=== PATIENT | female | born 2000 | race Hispanic/Latino ===

== ENCOUNTER → 2023-10-13 15:14 | Outpatient (CLI) | payer OTHER, SELFPAY ==
[2023-10-13 15:26] LABS: Add Manual Diff / Slide Review NO; Basophils Absolute Auto 0 /uL (0-100); Basophils Percent Auto 0.3 % (0-2); Eosinophils Absolute Auto 100 /uL (0-450); Eosinophils Percent Auto 0.8 % (2-4); Hematocrit 29.8 % (36-46); Hemoglobin 10.2 g/dL (12.0-16.0); Lymphocytes Absolute Auto 1600 /uL (1100-4500); Mean Corpuscular HGB Conc 34.4 % (30-36); Mean Corpuscular Hemoglobin 29.1 PG (26-34); Mean Corpuscular Volume 84.7 fL (80-100); Monocytes Absolute Auto 800 /uL (0-900); Monocytes Percent Auto 8.9 % (3-14); Neutrophils Absolute Auto 6800 /uL (1500-7000); Platelet Count 231 X10^3/uL (150-400); Red Blood Cell Count 3.52 X10^6/uL (4.0-5.2); Red Cell Distribution Width 14.7 % (11.6-14.8); White Blood Cell Count 9.3 X10^3/uL (4.5-11.0)
== END ==
PROVIDERS: Referring Provider Obstetrics & Gynecology; Visit Provider Obstetrics & Gynecology
DX: O99.019 Anemia complicating pregnancy, unspecified trimester (principal)
CPT/HCPCS: 36415; 85025; 86592; 87340; 87389

== ENCOUNTER → 2023-10-20 09:43 | Outpatient (CLI) | payer OTHER, SELFPAY ==
[2023-10-21 12:12] LABS: Strep Grp B PCR NEG for Grp B Strep
== END ==
PROVIDERS: Visit Provider Obstetrics & Gynecology
DX: Z34.03 Encounter for supervision of normal first pregnancy, third trimester (principal); Z3A.36 36 weeks gestation of pregnancy
CPT/HCPCS: 87653

== ENCOUNTER 2023-10-20 10:04 | Observation (INO) | payer OTHER, SELFPAY | END 2023-10-20 10:40 | disposition home or self-care (01) | PROVIDERS: Admitting Provider Obstetrics & Gynecology; Referring Provider Obstetrics & Gynecology; Visit Provider Obstetrics & Gynecology | DX: O47.03 False labor before 37 completed weeks of gestation, third trimester (principal); O99.013 Anemia complicating pregnancy, third trimester; D64.89 Other specified anemias; Z3A.36 36 weeks gestation of pregnancy | CPT/HCPCS: 59025; 87653; G0378; G0379 ==

== ENCOUNTER → 2023-10-21 09:08 | Outpatient (CLI) | payer OTHER, SELFPAY ==
--- NOTE | 2023-10-21 09:09 | DI.US.S_ITS ---
PROCEDURE: US OB LIMITED INDICATIONS: late transfor of care, concern of IUGR OUTSIDE/PRIOR DATING DATA: Last menstrual period (LMP): 02/12/2023 LMP-based estimated date of delivery (ABELARDO): 11/19/2023 First dating scan (date and location): 05/21/2023 Estimated date of delivery (ABELARDO) from first dating scan: 11/16/2023 The calculations are made using the clinical ABELARDO of 11/19/2023. TECHNIQUE: Real-time scanning was performed of the fetus, with image documentation and biometric measurements. Endovaginal scanning: Not performed COMPARISON: [facility], , US OB < 14 WEEKS, 07/13/2023, 8:28. FINDINGS: General: A single living intrauterine gestation is present. Presentation: Vertex Placenta: Placental position is posterior, without previa. Amniotic fluid index: 15.0 cm, normal range is 5-24 cm. Single deepest vertical pocket is 5.2 cm. heart rate: 123 beats per minute. Maternal cervical canal: 3.9 cm long. Normal lower limit is 2.5 cm. biometrics: Biparietal diameter: 9.6 cm, 39 weeks 0 days Head circumference: 33.3 cm, 38 weeks 0 days Abdominal circumference: 34.8 cm, 38 weeks 5 days Femur length: 6.7 cm, 34 weeks 3 days Clinically estimated gestational age: 35 weeks 6 days Composite gestational age from present scan: 37 weeks 4 days Estimated weight and percentile: 3290 g, 92nd percentile Other: Not applicable. IMPRESSION: 1. Single live intrauterine with vertex presentation. 2. Interval growth is greater than expected with estimated weight at the 92nd percentile based on clinical gestational age. 3. And the attic fluid index is within normal limits. Approved by: Jordan Garcia M.D. on 10/26/2023 at 12:54
== END ==
LOC: US 09:08
PROVIDERS: Referring Provider Obstetrics & Gynecology; Visit Provider Obstetrics & Gynecology
DX: O99.013 Anemia complicating pregnancy, third trimester (principal); Z3A.37 37 weeks gestation of pregnancy
CPT/HCPCS: 76815

== ENCOUNTER 2023-10-27 10:31 | Observation (INO) | payer OTHER, SELFPAY | END 2023-10-27 11:05 | disposition home or self-care (01) | PROVIDERS: Admitting Provider Obstetrics & Gynecology; Referring Provider Obstetrics & Gynecology; Visit Provider Obstetrics & Gynecology | DX: O47.1 False labor at or after 37 completed weeks of gestation (principal); O99.013 Anemia complicating pregnancy, third trimester; D64.9 Anemia, unspecified; Z3A.37 37 weeks gestation of pregnancy | CPT/HCPCS: 59025; G0378; G0379 ==

== ENCOUNTER 2023-11-03 11:45 | Outpatient (CLI) | payer OTHER, SELFPAY | END 2023-11-03 12:35 | disposition home or self-care (01) | LOC: LABOR 12:06 → OB 11-08 15:03 | PROVIDERS: Referring Provider Obstetrics & Gynecology; Visit Provider Obstetrics & Gynecology | DX: O99.013 Anemia complicating pregnancy, third trimester (principal); D64.9 Anemia, unspecified; Z3A.38 38 weeks gestation of pregnancy | CPT/HCPCS: 59025; G0378; G0379 ==

== ENCOUNTER 2023-11-10 13:08 | Outpatient (CLI) | payer OTHER, SELFPAY | END 2023-11-10 13:45 | disposition home or self-care (01) | LOC: LABOR 13:16 → OB 11-15 06:16 | PROVIDERS: Referring Provider Obstetrics & Gynecology; Visit Provider Obstetrics & Gynecology | DX: O99.013 Anemia complicating pregnancy, third trimester (principal); D64.9 Anemia, unspecified; Z3A.39 39 weeks gestation of pregnancy | CPT/HCPCS: 59025; G0378; G0379 ==

== ENCOUNTER 2023-11-17 11:42 | Outpatient (CLI) | payer OTHER, SELFPAY | END 2023-11-17 12:33 | disposition home or self-care (01) | LOC: LABOR 12:00 → OB 11-18 11:57 | PROVIDERS: Referring Provider Obstetrics & Gynecology; Visit Provider Obstetrics & Gynecology | DX: O48.0 Post-term pregnancy (principal); O47.1 False labor at or after 37 completed weeks of gestation; O99.013 Anemia complicating pregnancy, third trimester; D64.9 Anemia, unspecified; Z3A.40 40 weeks gestation of pregnancy | CPT/HCPCS: 59025; G0378; G0379 ==

== ENCOUNTER 2023-11-23 11:36 | Inpatient (IN) | payer OTHER, SELFPAY ==
[2023-11-23] MEDS: LACTATED RINGERS 1,000 ML 100 ML IV (12:30)
[2023-11-23] MEDS: DINOPROSTONE VAG (CERVIDIL) 10 MG VAG (12:34)
[2023-11-23 12:41] LABS: Add Manual Diff / Slide Review NO; Basophils Absolute Auto 0 /uL (0-100); Basophils Percent Auto 0.4 % (0-2); Eosinophils Absolute Auto 100 /uL (0-450); Eosinophils Percent Auto 0.9 % (2-4); Hematocrit 31.9 % (36-46); Hemoglobin 10.9 g/dL (12.0-16.0); Lymphocytes Absolute Auto 1600 /uL (1100-4500); Lymphocytes Percent Auto 15.9 % (25-40); Mean Corpuscular Hemoglobin 28.7 PG (26-34); Mean Corpuscular Volume 84.2 fL (80-100); Monocytes Absolute Auto 900 /uL (0-900); Monocytes Percent Auto 9.3 % (3-14); Neutrophils Absolute Auto 7200 /uL (1500-7000); Neutrophils Percent Auto 73.5 % (50-75); Platelet Count 276 X10^3/uL (150-400); Red Blood Cell Count 3.79 X10^6/uL (4.0-5.2); Red Cell Distribution Width 15.5 % (11.6-14.8); White Blood Cell Count 9.8 X10^3/uL (4.5-11.0)
[2023-11-23 12:59] VITALS: BP 102/63
--- NOTE | 2023-11-23 13:23 | P.HPOB_ITS ---
OB HPI Date/Time Date of admission: 11/23/23 Date Patient Seen: 11/23/23 Time Patient Seen: 12:00 History of Present Condition Chief complaint: induction of labor : 1 Para: 0 Estimated Date of Delivery: 11/16/23 Estimated Gestational Age (weeks): 41w0d Narrative: Jessica Lake is a 23 year old female G1 at 41w0d by early dating presents for scheduled indicated IOL at late term. course notable for maternal anemia s/p iron transfusion, concern for possible LGA with noted growth in 92nd% at 36wga. Pt states she is feeling well, +FM, denies VB, LOF, dysuria. Notes persistent intermittent BH ctx but nothing consistent. Presents for admission today accompanied by her and mother. Indications Indication for induction OB: post dates History of Present care: good care Dating criteria: LMP confirmed by 1st trimester US Ultrasounds: normal mid trimester US Abnormal ultrasound findings: OSH FAS wnl, growth 39th% posterior placenta without previa Obstetrical complications: other (anemia, prior concern for IUGR however interval growth scan LGA) Medical complications: other (maternal anemia s/p iron transfusion ) Preadmission Labs Blood type: A (+) positive -: Antibody screen: negative, Cystic fibrosis screen: unknown, GBS status: negative, HBsAG: negative, HIV: negative, HSV 1: unknown, HSV 2: unknown and RPR/VDLR: negative -: Chlamydia screen: not detected and Gonorrhea screen: not detected -: Rubella: immune and Varicella: immune HCT: 31.9 PAP: Normal Quad screen: Normal (reported, unable to visualize report ) 1 hr GTT: 116 Evaluation Evaluation Baseline heart rate: 140 Variability: Moderate (11-25) monitor accelerations: Present Monitor Decelerations: Early and Episodic Uterine Contraction Intensity: Mild Category of Tracing: Reactive Status: Category l Dilation (cm): 0 Effacement (%): 50 Dilation: Closed Effacement: 40-50% station: -3 Position of cervix: mid Consistency: soft Valdez score: 4 PFSH Surgical History (Updated 10/04/23 @ 14:38 by Anni Valentino RN) [place] teeth extracted Family History (Updated 10/04/23 @ 14:39 by Anni Valentino RN) Grandmother Diabetes mellitus Hypertension Social History marital status: number of children: 0 household members: spouse lives independently: Yes caregiver/support person: No housing: apartment pets and animals: Yes (turtle) education level: college (some college) 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[employer]) current occupational exposures/hazards: No special catherine needs: No travel history: over 6 months ago seatbelt use: always water heater temp set < 120 deg: Yes working smoke detector in home: Yes fire extinguisher in home: Yes carbon monox detector in home: Yes firearms in home: No do you feel safe at home: Yes Smoking Status: Never smoker second hand exposure: No alcohol intake: never substance use type: does not use during the past year weight has: remained stable well-balanced diet: rarely or never daily servings fruits/ve-1 caffeine: Yes (minimal) Type(s) of exercise: walking Meds Home Medications and Allergies Home Medications Medication Instructions Recorded Confirmed Type breast pump #1 ea 10/13/23 11/23/23 Rx Allergies Allergy/AdvReac Type Severity Reaction Status Date / Time avocado Allergy Severe Swelling Verified 11/17/23 11:20 of Lip/Tongue/Throat shrimp Allergy Severe Swelling Verified 11/17/23 11:20 of Lip/Tongue/Throat aloe Allergy Intermediate Rash Verified 11/17/23 11:20 cantaloupe Allergy Intermediate Rash Verified 11/17/23 11:20 honeydew Allergy Intermediate Rash Verified 11/17/23 11:20 pecan nut Allergy Intermediate Rash Verified 11/17/23 11:20 Review of Systems Review of Systems ROS: Yes All systems reviewed with the patient and are negative except as otherwise documented OB Exam Vital signs Blood Pressure: 106/67 Pulse Rate: 84 Respiratory Rate: 18 Temperature: 35.8 F HENMT Head: normal to inspection Mouth: moist mucous membranes Resp Effort & Inspection: normal respiratory effort Cardio Rate: regular rate Rhythm: regular rhythm Extremities Lower extremity: Yes normal to inspection GI Inspection: normal to inspection Other: gravid, raudel cephalic 8# External Female Exam: Yes normal external appearance Speculum Exam - Vagina: Yes normal appearance of the vagina Presentation: vertex Estimated Weight (lbs): 8 Objective Labs 11/23/23 12:00 Labs: Laboratory Results - last 24 hr 11/23/23 12:00 WBC 9.8 RBC 3.79 L Hgb 10.9 L Hct 31.9 L MCV 84.2 MCH 28.7 MCHC 34.0 RDW 15.5 H Plt Count 276 Neut % (Auto) 73.5 Lymph % (Auto) 15.9 L [place] % (Auto) 9.3 Eos % (Auto) 0.9 L Baso % (Auto) 0.4 Neut # (Auto) 7200 H Lymph # (Auto) 1600 [place] # (Auto) 900 Eos # (Auto) 100 Baso # (Auto) 0 Assessment and Plan Assessment and Plan Assessment and Plan narrative: 23yo G1 at 41w0 by early dating presents for scheduled indicated IOL at late term IOL SVE cl/50/-3 however noted shift to midline with interval effacement from time of last office exam plan for cervidil for cervical ripening CEFM/toco GBS neg PNL as above maternal anemia s/p Fe transfusion at 32wga h/h on admission 10.9/31.9 plan for PPH cart/uterotonics in room at time of delivery Concern for LGA 92nd% at 36wga raudel 8# on admission low threshold to proceed to 1LTCS in absent of adequate descent with labor progression Patient is consented for vaginal, vaginal operative and delivery. She additionally consents to blood transfusion as indicated. Dispo: admit for IOL, anticipate vaginal delivery Time Spent with Patient Total time spent with greater than 50% in coordination of care (as documented) at patient's floor/unit and/or counseling patient:: 25 - 35 minutes
[2023-11-23 13:48] VITALS: BP 106/67; PULSE 84; RESP 18; TEMP 2.1; TEMP 35.8
[2023-11-24] MEDS: OXYTOCIN PREMIX 30 UNIT/500 ML PLAST..BAG IV (07:11)
[2023-11-24] MEDS: LACTATED RINGERS 1,000 ML 100 ML IV ×2 (08:15→18:16)
--- NOTE | 2023-11-24 09:38 | PM.OBPNLAB ---
Date/Time Date Patient Seen: 11/24/23 Time Patient Seen: 07:45 Pain Control Pain control: tolerating well Comments: supportive measures Pelvic Exam Dilation (cm): 3 Effacement (%): 50 station: -3 Amniotic membrane status: Intact Comments: per RN SVE Contractions Contractions on admission: regular Monitor mode: External Pitocin rate (mU/min): 1 Contraction frequency (min): 2 Contraction duration (min): 1 Contraction pattern: Regular Contraction intensity: Mild Status status: Category l Monitor Accelerations: Present Monitor Decelerations: Absent Monitor Variability: Moderate Assessment and Plan Assessment: induction ongoing Plan: continuous present management Comments: 23yo G1 at 41w1d, HD2 for IOL at late term Late term IOL appropriate response to cervical ripening --> 3cm with RN exam at 0500 start pitocin for further augmentation, titrate to pattern plan for interval SVE 4-6hr, consider AROM at that time pending descent continue CEFM, toco encourage ambulation, frequent position changes anticipate vaginal delivery
--- NOTE | 2023-11-24 20:22 | PM.OBPNLAB ---
Date/Time Date Patient Seen: 11/24/23 Time Patient Seen: 19:35 Pain Control Pain control: tolerating well Comments: Patient desires unmedicated labor; her mother Mona is concerned for her daughter in that area. Pelvic Exam Effacement (%): 50 station: -3 Amniotic membrane status: Intact Comments: Exam not repeated. See Dr. Zapata's most recent assessment. Contractions Contractions on admission: none Monitor mode: External Pitocin rate (mU/min): 12 Contraction frequency (min): 3 Contraction pattern: Regular Contraction phase: Resting Contraction intensity: Moderate Status status: Category l Heart Rate Baseline: 150 Monitor Accelerations: Present Monitor Decelerations: Absent Monitor Variability: Moderate Assessment and Plan Assessment: induction ongoing Plan: continuous present management Comments: Will patiently await entry into active phase labor and closely observe progress thereafter. Discussed the plan with both the patient and her mother who express both understanding and concurrence. I have assumed management of this patient from Dr. Zapata who requests to be called if patient requires operoative intervention
[2023-11-25] MEDS: ONDANSETRON 4 MG/2 ML INJ IV (01:29)
--- NOTE | 2023-11-25 06:15 | PM.OBPNLAB ---
Date/Time Date Patient Seen: 11/25/23 Time Patient Seen: 06:15 Pain Control Pain control: tolerating well Comments: Patient remains essentially unmedicated aside from from some use of N2O. Pelvic Exam Dilation (cm): 10 Effacement (%): 100 station: +1 Amniotic membrane status: Ruptured Comments: AROM 1700 11/24/2023, clear fluid Contractions Contractions on admission: none Monitor mode: External Pitocin rate (mU/min): 6 Contraction frequency (min): 3 Contraction pattern: Regular Contraction phase: Resting Contraction intensity: Moderate Status status: Category l Heart Rate Baseline: 150 Monitor Accelerations: Present Monitor Decelerations: Early, Episodic and Variable Monitor Variability: Moderate Assessment and Plan Assessment: induction ongoing Plan: continuous present management Comments: Anticipate
--- NOTE | 2023-11-25 07:37 | PM.OBPNLAB ---
Date/Time Date Patient Seen: 11/25/23 Time Patient Seen: 07:37 Pain Control Pain control: tolerating well Pelvic Exam Dilation (cm): 10 Effacement (%): 100 station: +1 (Vertex at +1 - +2) Amniotic membrane status: Ruptured Comments: Moderate caput, position indeterminate Contractions Contractions on admission: none Monitor mode: External Pitocin rate (mU/min): 6 Contraction frequency (min): 3 Contraction pattern: Regular Contraction phase: Resting Contraction intensity: Moderate Status status: Category l Heart Rate Baseline: 145 Monitor Accelerations: Present Monitor Decelerations: Early Monitor Variability: Moderate Assessment and Plan Assessment: induction ongoing Plan: other Comments: Will rest and use N2O x 30 minutes or so and resume pushing if sliver of cervix can be reduced. Ample room posteriorly, position indeterminate.
--- NOTE | 2023-11-25 11:41 | PM.OBPNLAB ---
Date/Time Date Patient Seen: 11/25/23 Time Patient Seen: 08:00 Pain Control Comments: Assuming care of patient from Dr. Ty. 23 year old at 41 wks gest with an uncomplicated . Received Misoprotol for cervical ripening. Had Pitocin the next morning and through the day. Pitocin was discontinued for several hours and then restarted. AROM was performed. GBS neg. Pt has progessed slowly in active labor. No epidural. Pelvic Exam Dilation (cm): 9 Effacement (%): 100 station: +1 (Vertex at +1 - +2) Amniotic membrane status: Ruptured Contractions Contractions on admission: none Monitor mode: External Pitocin rate (mU/min): 5 Contraction frequency (min): 3 Contraction duration (min): 1 Contraction pattern: Regular Contraction phase: Resting Contraction intensity: Strong/Firm Status status: Category l Heart Rate Baseline: 150 Monitor Accelerations: Present Monitor Decelerations: Variable Monitor Variability: Moderate Assessment and Plan Assessment: active labor Comments: Cervix reduced Begin pushing Expectant management to
--- NOTE | 2023-11-25 11:41 | PM.OBPRVD ---
Events: Labor Induction Labor & Delivery Delivery date: 11/25/23 Cervical ripening method: per Cervidil protocol Induction method: per pitocin protocol Delivery augmentation: rupture of membranes Delivery monitor: external FHT and external uterine Route of delivery: vacuum extraction Indication for instrumentation: maternal exhaustion Episiotomy description: None L&D Laceration Description: Perineal - 2nd Degree and Vaginal - 2nd Degree Delivery repair: vicryl and chromic Quantitative Blood Loss: 175 Anesthesia Type: Local (For repair only) Complications: None Narrative: Patient complete and pushed for roughly 3 hours. The vertex was at +2 station. She requested assistance. The vacuum was applied x1 and with 1 pull the vertex came to the perineum. The vacuum was removed. With the next push the vertex delivered over an intact perineum in the CARMEN presentation at 10:53 a.m.. A nuchal cord x1 was reduced on the perineum. The remainder of the body delivered without difficulty and was placed on mom's abdomen. The cord was double clamped and cut after it stopped pulsing. Cord bloods were obtained. Pitocin was given in the IV fluids. Placenta delivered intact with a three-vessel cord at 11:06 a.m.. The fundus was massaged to firm. A second-degree perineal/vaginal laceration was noted and repaired in the usual fashion. Hemostasis was achieved. Apgars 8 at 1 minute and 9 at 5 minutes. weight 7 lb 8 oz. Local analgesia for the repair only. . Mom and stable to recovery. [place] Baby 1: Infant gender: Male Presentation: vertex Position: Left Occiput Anterior Placenta delivery description: Spontaneous Cord Vessel Description: 3 Vessels, Nuchal Cord, Loose, Reduced and Clamped/Cut (After cord stopped pulsing) score (1 min): 8 score (5 min): 9 weight: 7 lb 8 oz Plan for aftercare: Routine care
[2023-11-25] MEDS: DERMOPLAST SPRAY 20% 60 ML 1 SPRAY TOP (16:51)
[2023-11-25] MEDS: IBUPROFEN 600 MG TABLET PO ×2 (16:56→23:31)
[2023-11-25] MEDS: ACETAMINOPHEN 325 MG TABLET 650 MG PO (20:42)
[2023-11-26] MEDS: ACETAMINOPHEN 325 MG TABLET 650 MG PO ×3 (03:10→15:51)
[2023-11-26 06:15] LABS: Hematocrit 24.7 % (36-46); Hemoglobin 8.4 g/dL (12.0-16.0)
[2023-11-26] MEDS: IBUPROFEN 600 MG TABLET PO ×3 (07:35→15:50)
[2023-11-26] MEDS: DOCUSATE 100 MG CAPSULE PO (09:32)
[2023-11-26] MEDS: PRENATAL VIT,CALC/IRON/FOLIC 1 TABLET 1 TAB PO (09:32)
--- NOTE | 2023-11-26 13:02 | P.PNOB_ITS ---
Subjective - OB Subjective Patient comments: no complaints and pain well controlled [place] baby status: doing well and nursing well feeding status: exclusively breast feeding Narrative: pt resting comfortably in bed, states she is feeling significantly better, notes only mild to moderate perineal soreness however pain well controlled with current analgesia Date Patient Seen: 11/26/23 Time Patient Seen: 12:30 Interval history: PPD1 s/p VAVD LBMI Exam Vital Signs (past 8 hours): maternal VSS reviewed per OBIX and with bedside RN, wnl for pt habitus (SBP 77- 90s) and asympatomic with ambulation afebrile Const General: cooperative, healthy appearing and comfortable Nutritional Appearance: average body habitus Orientation: alert, awake and oriented x3 Limitations: mental status not altered HENMT Head: normal to inspection Mouth: moist mucous membranes Chest Chest: normal inspection of the chest Breast inspection: normal inspection of the breasts Resp Effort & Inspection: normal respiratory effort Cardio Pulses: normal peripheral pulses GI Inspection: normal to inspection Other: fundus firm << umb, non-tender Other: deferred per shared decision making with patient Skin General: no rashes or lesions noted Neuro General: patient alert, patient awake and patient oriented x3 Extrem General: normal to inspection Psych Appearance: grossly normal Mental Status: mental status grossly normal Speech and Movement: speech and movement normal Attitude: cooperative Thought Content: normal Judgment: judgment good Objective Labs 11/26/23 06:05 Labs: Laboratory Results - last 24 hr 11/26/23 06:05 Hgb 8.4 L Hct 24.7 L Assessment & Plan Plan day: 1 plan OB: routine care Comments: 23yo PPD1 s/p VAVD of LBMI routine care fully advanced exclusively, support PRN PNL as per admission documentation pt declines immediately contraception, readdress/confirm prior to discharge Asymptomatic chronic maternal anemia continue oral iron supplementation on discharge anticipate dc to home PPD2 pending clinical course, clearance per peds. Routine 4-6wk f/u in office Time Spent With Patient Time: Total time spent is greater than 50% in coordination of care (as documented) at patient's floor/unit and/or counseling patient: Time with patient: 15-24 minutes
--- NOTE | 2023-11-27 21:03 | P.DS_ITS ---
Discharge Providers Provider Date of admission: 11/23/23 11:36 Discharge Date: 11/26/23 Primary care physician: Darwin HAYS Provider Consults: 11/23/23 11:51 Consult to Anesthesiology Urgent Comment: Consulting Provider: Anesthesiologist Reason for consultation: Epidural 11/26/23 11:41 Consult to Equipment Services Associate Routine Comment: Discharge provider: Kathy Rodriguez MD Summary Hospital Course Date Patient Seen: 11/26/23 Time Patient Seen: 17:15 Diagnoses: 41 wks gestation Vacuum assisted vaginal delivery Second degree perineal/vaginal laceration Artificial rupture of membranes Cervidil cervical ripening Pitocin induction of labor Hospital Course: Patient is a 23 year old Peripartum Data Infant Delivery Method: Assisted Delivery (vacuum) Laceration Description: Perineal - 2nd Degree and Vaginal - 2nd Degree Episiotomy description: None Procedures: Cervidil cervical ripening Pitocin induction of labor Spontaneous rupture of membranes Vacuum assisted vaginal delivery Second degree vaginal/perineal laceration repair complications: none [place] 1: Gender: Male Disposition of : home Status at Discharge Cognitive/behavioral status at discharge: oriented Functional status at discharge: independent ambulation Overall status at discharge: patient is progressing back to baseline Time Spent with Patient Time attestation: Total time spent providing and/or coordinating discharge services: Time spent: Less than 30 minutes Objective Labs 11/26/23 06:05 Exam Narrative Exam Narrative: Gen: Sitting on edge of bed, NAD Fundus: Firm U/U Ext: Trace edema, neg Rick's Discharge Plan Discharge Plan Patient Disposition: Home Provider Discharge Comment: Call with fever, chills, or bleeding vaginally more than a pad in an hour Ibuprofen 600 mg every 6 hours as needed for cramping Tylenol 650 mg every 6 hours as needed Discharge orders & Medications Prescriptions: No Action (DME) breast pump Device See Rx Instructions .Route Qty: 1 0RF Rx Instructions: As directed double electric Follow up/Referrals: Maria C Zapata MD [Physician] - (6 week Appt w/ Dr. Zapata: Jan.06 @ 11am) Diet/Activity/Treatments Diet: Regular Activity: Nothing in the vagina for 6 weeks Skin/Wound/Dressing Care Report to your healthcare provider any signs of infection, such as:: chills, fever, increased pain and unusual drainage Visit Report/Discharge Packet Instructions: DI for Labor and Delivery, Vaginal Stand Alone Forms: Discharge: Care, Patient Portal/API, Stroke Signs & Symptoms Discharge Data Primary Care Provider: Darwin Scales
== END 2023-11-26 19:07 | disposition home or self-care (01) | DRG 807 ==
PROVIDERS: Obstetrics & Gynecology; Admitting Provider Obstetrics & Gynecology; Referring Provider Obstetrics & Gynecology; Visit Provider Obstetrics & Gynecology
DX: O48.0 Post-term pregnancy (principal); Z37.0 Single live birth; Z3A.41 41 weeks gestation of pregnancy; O70.1 Second degree perineal laceration during delivery; O76 Abnormality in fetal heart rate and rhythm complicating labor and delivery; O75.81 Maternal exhaustion complicating labor and delivery
CPT/HCPCS: 36415; 59050; 59200; 59410; 85014; 85018; 85025; 86850; 86900; 86901; G0379; J2405; J2590

== ENCOUNTER 2024-01-28 16:58 | Emergency (ER) | payer OTHER, SELFPAY ==
[2024-01-28 17:04] VITALS: BP 118/80; PULSE 71; RESP 16; TEMP 37.1; O2SAT 97
[2024-01-28 17:39] LABS: Add Manual Diff / Slide Review NO; Basophils Absolute Auto 0 /uL (0-100); Basophils Percent Auto 0.6 % (0-2); Eosinophils Absolute Auto 100 /uL (0-450); Hematocrit 37.3 % (36-46); Hemoglobin 12.4 g/dL (12.0-16.0); Lymphocytes Absolute Auto 2000 /uL (1100-4500); Lymphocytes Percent Auto 34.2 % (25-40); Mean Corpuscular HGB Conc 33.3 % (30-36); Mean Corpuscular Hemoglobin 27.2 PG (26-34); Mean Corpuscular Volume 81.7 fL (80-100); Monocytes Absolute Auto 600 /uL (0-900); Monocytes Percent Auto 10.1 % (3-14); Neutrophils Absolute Auto 3200 /uL (1500-7000); Neutrophils Percent Auto 54.1 % (50-75); Platelet Count 292 X10^3/uL (150-400); Red Blood Cell Count 4.56 X10^6/uL (4.0-5.2); Red Cell Distribution Width 13.2 % (11.6-14.8)
[2024-01-28 17:50] LABS: Acetaminophen < 10 ug/mL (10-30); Alanine Aminotransferase 28 IU/L (<35); Albumin 4.4 g/dL (3.5-5.0); Albumin Globulin Ratio 1.5 (1.0-2.8); Alkaline Phosphatase 85 U/L (38-126); Aspartate Aminotransferase 27 IU/L (14-36); BUN Creatinine Ratio 16.4 (6-22); Bilirubin Total 0.4 mg/dL (0.2-1.3); Blood Urea Nitrogen 12 mg/dL (7-17); Calcium 9.6 mg/dL (8.4-10.2); Carbon Dioxide 22 mmol/L (22-32); Chloride 105 mmol/L (98-107); Estimated Glomerular Filt Rate > 60 mL/min (>60); Glucose 81 mg/dL (70-100); HEMOLYSIS < 15 (0-50); Potassium 3.1 mmol/L (3.4-5.1); Salicylate < 1.0 mg/dL (<20); Sodium 140 mmol/L (137-145); Total Protein 7.4 g/dL (6.3-8.2)
[2024-01-28 17:58] LABS: Ethanol (ETOH) < 10 mg/dL
--- NOTE | 2024-01-28 18:18 | ED.PSYCH ---
HPI - Psych General Chief Complaint: Psychiatric Symptoms Stated Complaint: post examination, sent by OB Time Seen by Provider: 01/28/24 17:47 Source: patient Mode of arrival: Ambulatory History of Present Illness HPI Narrative: Patient is a 24-year-old female who is 2 months . 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 She was brought over by the OB department for concerns of depression. Patient reports that she has had increased irritability over the past several weeks. She was currently on Zoloft and has been on this medicine for just a couple weeks as well. Occasionally has fleeting thoughts of hurting herself but nothing currently. No specific plan. No prior history of depression. She was currently face with having to return to work which somewhat distressing for. Patient has been seen by social work prior to my evaluation. Related Data Previous Rx's Medication Instructions Recorded breast pump #1 ea 10/13/23 ibuprofen 600 mg tablet 600 mg PO Q6H PRN fever or pain 11/30/23 #30 tabs oxycodone 5 mg tablet 5 mg PO Q6H PRN pain #12 tabs 11/30/23 sertraline 50 mg tablet 50 mg PO DAILY #30 tabs 01/19/24 Allergies Allergy/AdvReac Type Severity Reaction Status Date / Time avocado Allergy Severe Swelling Verified 11/30/23 11:53 of Lip/Tongue/Throat shrimp Allergy Severe Swelling Verified 11/30/23 11:53 of Lip/Tongue/Throat aloe Allergy Intermediate Rash Verified 11/30/23 11:53 cantaloupe Allergy Intermediate Rash Verified 11/30/23 11:53 honeydew Allergy Intermediate Rash Verified 11/30/23 11:53 pecan nut Allergy Intermediate Rash Verified 11/30/23 11:53 Review of Systems Review of Systems Narrative: See HPI Patient History Medical History depression Allergies Surgical History (Updated 11/25/23 @ 17:10 by Reina Viera) Hessel teeth extracted (~08/19/20) Family History (Updated 11/25/23 @ 17:12 by Reina Viera) Grandmother Diabetes mellitus Hypertension Grandfather History of heart disease Grandfather Diabetes mellitus Grandmother Cancer Diabetes mellitus Glaucoma Social History marital status: number of children: 0 household members: spouse lives independently: Yes caregiver/support person: No housing: apartment pets and animals: Yes (turtle) education level: college (some college) 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[employer])) current occupational exposures/hazards: No special catherine needs: No travel history: over 6 months ago seatbelt use: always water heater temp set < 120 deg: Yes working smoke detector in home: Yes fire extinguisher in home: Yes carbon monox detector in home: Yes firearms in home: No do you feel safe at home: Yes Smoking Status: Never smoker second hand exposure: No alcohol intake: never substance use type: does not use during the past year weight has: remained stable well-balanced diet: rarely or never daily servings fruits/ve-1 caffeine: Yes (minimal) Type(s) of exercise: walking Smoking Status: Never smoker Substance Use Type: does not use Exam Initial Vital Signs Initial Vital Signs: Vital Signs Temperature 98.8 F 01/28/24 17:04 Pulse Rate 71 01/28/24 17:04 Respiratory Rate 16 01/28/24 17:04 Blood Pressure 118/80 01/28/24 17:04 Pulse Oximetry 97 01/28/24 17:04 Oxygen Delivery Method Room Air 01/28/24 17:04 HENMT Head: normal to inspection and normocephalic Resp Effort & Inspection: normal respiratory effort Cardio Rate: regular rate Skin General: no rashes or lesions noted Neuro General: patient alert, patient awake and moves all extremities Extrem General: normal to inspection Psych Other: Patient was calm, cooperative, not anxious, no suicidal ideation. Course Orders Ordered: ED Orders 01/28/24 17:15 COVID19 -Nasal RAPID Stat Urine Drug Screen, Rapid Stat 01/28/24 17:20 Consult to DIRECTOR OPERATIONS - Health Manager Stat Acetaminophen Stat Complete Blood Count AUTO DIFF Stat Comprehensive Metabolic Panel Stat Ethanol (ETOH) Stat Free T4, Direct Thyroxine Stat Salicylate Stat Thyroid Stimulating Hormone Stat Vital Signs Vital signs: Vital Signs - 8 hr 01/28/24 17:04 Temperature 98.8 F Pulse Rate 71 Respiratory Rate 16 Blood Pressure 118/80 Pulse Oximetry 97 Oxygen Delivery Method Room Air MDM - Psych Lab Data 01/28/24 17:20 01/28/24 17:20 Labs: Lab Results 01/28/24 Range/Units 17:20 WBC 6.0 (4.5-11.0) X10^3/uL RBC 4.56 (4.0-5.2) X10^6/uL Hgb 12.4 (12.0-16.0) g/dL Hct 37.3 (36-46) % MCV 81.7 (80-100) fL MCH 27.2 (26-34) PG MCHC 33.3 (30-36) % RDW 13.2 (11.6-14.8) % Plt Count 292 (150-400) X10^3/uL Neut % (Auto) 54.1 (50-75) % Lymph % (Auto) 34.2 (25-40) % Cottle % (Auto) 10.1 (3-14) % Eos % (Auto) 1.0 L (2-4) % Baso % (Auto) 0.6 (0-2) % Neut # (Auto) 3200 (2293-7271) /uL Lymph # (Auto) 2000 (4051-9720) /uL Cottle # (Auto) 600 (0-900) /uL Eos # (Auto) 100 (0-450) /uL Baso # (Auto) 0 (0-100) /uL Sodium 140 (137-145) mmol/L Potassium 3.1 L (3.4-5.1) mmol/L Chloride 105 (98-107) mmol/L Carbon Dioxide 22 (22-32) mmol/L BUN 12 (7-17) mg/dL Creatinine 0.73 (0.52-1.04) mg/dL Estimated GFR > 60 (>60) mL/min BUN/Creatinine Ratio 16.4 (6-22) Glucose 81 (70-100) mg/dL Calcium 9.6 (8.4-10.2) mg/dL Total Bilirubin 0.4 (0.2-1.3) mg/dL AST 27 (14-36) IU/L ALT 28 (<35) IU/L Alkaline Phosphatase 85 (38-126) U/L Total Protein 7.4 (6.3-8.2) g/dL Albumin 4.4 (3.5-5.0) g/dL Globulin 3.0 (1.7-4.1) g/dL Albumin/Globulin Ratio 1.5 (1.0-2.8) TSH 0.786 (0.47-4.68) uIU/mL Free T4 1.45 (0.78-2.19) ng/dL Salicylates < 1.0 (<20) mg/dL Acetaminophen < 10 (10-30) ug/mL Ethyl Alcohol < 10 ( - 10) mg/dL MDM Narrative Medical decision making narrative: Patient has been seen by social work prior to my evaluation. There was no indication for admission to the hospital given her presentation today. She was not suicidal. She was given resources for help. She was eligible for [facility] and family services through the [facility] was can be very helpful as well. Patient does have support at home. Will discharge patient home with return precautions. She expressed understanding and agreement with plan. Discharge Plan Departure Patient Disposition: Home Clinical Impression: Adjustment disorder Activity Restrictions/Additional Instructions: Recommend that you continue to take all of your medications as directed. I also recommend that [place] and also use the resources provided to you today by social media senior associate specifically [employer] family services. Return to the emergency department for new or worsening symptoms. Prescriptions: No Action (DME) breast pump Device See Rx Instructions .Route Qty: 1 0RF Rx Instructions: As directed double electric sertraline 50 mg tablet 50 mg PO DAILY Qty: 30 3RF ibuprofen 600 mg tablet 600 mg PO Q6H PRN (Reason: fever or pain) Qty: 30 2RF oxycodone 5 mg tablet 5 mg PO Q6H PRN (Reason: pain) Qty: 12 0RF Referrals: [facility] [Primary Care Provider] - Stand Alone Forms: Patient Portal/API
[2024-01-28 18:22] LABS: Free T4, Direct Thyroxine 1.45 ng/dL (0.78-2.19)
--- NOTE | 2024-01-28 18:22 | CM.SWNOTE ---
ED DOMESTIC TRAVEL CONSULTANT Assessment Patient is 24 y/o female who presents to ED due to concern for depression and Anxiety. Patient endorses passive SI but no intent or plans. DOMESTIC TRAVEL CONSULTANT enters room to meet with patient, patient presents as A/Ox4, calm, coherent and communicative. Patient presents with some flat affect, tearful at times, euthymic. Patient has close follow up with OB Dr. Maria C Zapata who recently prescribed 50 mg of Sertraline for patient. Patient has upcoming appt scheduled for 02/01/24. Patient had her baby boy 2 months ago and has been feeling overwhelmed and triggered about going back to work in a few weeks. Patient endorses she has lost several family members recently as well. 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 Patient endorses SI comes and goes, here and there. Patient endorses passive thoughts of jumping out a window, patient denies current thoughts and denies intent to kill self. Patient states she would reach out to her or mother if thoughts worsened and if she was worried she would act on SI. Patient states sometimes she thinks about how she wants to be with grandma. Patient denies HI. Patient denies auditory and visual hallucinations. Patient endorses concerns for paranoia. Patient endorses she feels safe at home and feels safe to d/c to home. Patient endorses that she knows taking things one step at a time will help her move forward. Patient states she has a friend who is a new mother and she knows she can talk with her on the phone as well. DOMESTIC TRAVEL CONSULTANT provides patient with resources, maternity crisis line and information on [facility] [place] Mother's group. DOMESTIC TRAVEL CONSULTANT provides patient with list of MH providers that accept her insurance and encourages patient to reach out to [facility] and family with provided contact information. DOMESTIC TRAVEL CONSULTANT encourages patient to continue to f/u with OB and PCP. DOMESTIC TRAVEL CONSULTANT reviews patient with ED provider Dr. Herman, it is the opinion of this DOMESTIC TRAVEL CONSULTANT that patient is safe to d/c to home upon medical clearance. Plan: patient to d/c to home upon medical clearance, patient to f/u with OB next week and f/u with resources provided. JAMES Beltre
[2024-01-28 18:36] LABS: Thyroid Stimulating Hormone 0.786 uIU/mL (0.47-4.68)
[2024-01-28 18:37] VITALS: BP 120/78; PULSE 72; RESP 16; O2SAT 97
== END 2024-01-28 18:40 | disposition home or self-care (01) ==
PROVIDERS: Emergency Medicine; Emergency Provider Emergency Medicine
DX: F53.0 Postpartum depression (principal); F43.20 Adjustment disorder, unspecified
CPT/HCPCS: 36415; 80053; 80320; 80329; 84439; 84443; 85025; 99283; G0480

== ENCOUNTER 2024-02-09 15:09 | Emergency (ER) | payer OTHER, SELFPAY ==
[2024-02-09 15:39] VITALS: BP 134/77; PULSE 91; RESP 12; TEMP 36.7; O2SAT 95; BMI 21.2
[2024-02-09 15:51] LABS: Appearance Urine UA SL CLOUDY; Bilirubin Urine UA 2+ (NEGATIVE); Color Urine UA YELLOW; Glucose Urine UA NEGATIVE (Negative); Ketones Urine UA 1+ (NEGATIVE); Leukocyte Esterase Urine UA TRACE (NEGATIVE); Nitrite Urine UA NEGATIVE (Negative); Occult Blood Urine UA TRACE-INTACT (Negative); Protein Urine UA 1+ (Negative); Specific Gravity Urine UA >=1.030 (1.000-1.035)
[2024-02-09 15:56] LABS: pH Urine UA 5.5 (4.5-8.0)
[2024-02-09 16:01] LABS: Ictotest Urine Negative (Negative); Urine Volume 10mL (spun)
--- NOTE | 2024-02-09 16:02 | PC.NURSE ---
ORE FEEDER NOTE: Pt at bedside. Patient is sitting in bed quietly
[2024-02-09 16:03] LABS: Bacteria Urine Few (2-10); RBC Urine None Seen (0-5/HPF); Squamous Epithelial Cell Urine 10-30 /HPF (0-5/HPF); WBC Urine 30-100/HPF (0-5/HPF)
[2024-02-09 16:04] LABS: Culture Indicated Urine Specimen Cultured
[2024-02-09 16:05] LABS: UR Morphine/Opiate cutoff 300 Negative (Negative); Ur Creatinine Normal (Normal); Ur Specific Gravity Normal (Normal); Urine Amphetamines Negative (Negative); Urine Barbiturates Negative (Negative); Urine Benzodiazepines Negative (Negative); Urine Cocaine Negative (Negative); Urine MDMA Negative (Negative); Urine Methadone Negative (Negative); Urine Methamphetamines Negative (Negative); Urine Oxycodone Negative (Negative); Urine Phencyclidine Negative (Negative); Urine Tetrahydrocannabinol Negative (Negative); Urine Tricyclic Antidepressant Negative (Negative); Urine pH Normal (Normal)
[2024-02-09 16:06] LABS: Add Manual Diff / Slide Review NO; Basophils Absolute Auto 100 /uL (0-100); Basophils Percent Auto 0.9 % (0-2); Eosinophils Absolute Auto 100 /uL (0-450); Eosinophils Percent Auto 1.6 % (2-4); Hematocrit 41.3 % (36-46); Hemoglobin 13.9 g/dL (12.0-16.0); Lymphocytes Absolute Auto 1300 /uL (1100-4500); Lymphocytes Percent Auto 22.6 % (25-40); Mean Corpuscular HGB Conc 33.6 % (30-36); Mean Corpuscular Hemoglobin 27.3 PG (26-34); Mean Corpuscular Volume 81.4 fL (80-100); Monocytes Absolute Auto 600 /uL (0-900); Monocytes Percent Auto 10.3 % (3-14); Neutrophils Absolute Auto 3700 /uL (1500-7000); Neutrophils Percent Auto 64.6 % (50-75); Platelet Count 323 X10^3/uL (150-400); Red Blood Cell Count 5.08 X10^6/uL (4.0-5.2); White Blood Cell Count 5.7 X10^3/uL (4.5-11.0)
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
[2024-02-09 16:22] LABS: Acetaminophen < 10 ug/mL (10-30); Alanine Aminotransferase 25 IU/L (<35); Albumin 4.6 g/dL (3.5-5.0); Albumin Globulin Ratio 1.4 (1.0-2.8); Alkaline Phosphatase 78 U/L (38-126); Aspartate Aminotransferase 28 IU/L (14-36); Bilirubin Total 0.6 mg/dL (0.2-1.3); Blood Urea Nitrogen 10 mg/dL (7-17); Calcium 9.6 mg/dL (8.4-10.2); Carbon Dioxide 19 mmol/L (22-32); Chloride 107 mmol/L (98-107); Estimated Glomerular Filt Rate > 60 mL/min (>60); Ethanol (ETOH) < 10 mg/dL; Globulin 3.3 g/dL (1.7-4.1); Glucose 100 mg/dL (70-100); HEMOLYSIS < 15 (0-50); Salicylate < 1.0 mg/dL (<20); Sodium 141 mmol/L (137-145); Total Protein 7.9 g/dL (6.3-8.2)
--- NOTE | 2024-02-09 16:27 | PC.NURSE ---
Pt came to door and asked Is a doctor going to come see me? I reassured to the patient that the ED doc is going to come in assess her its just unknown exactly what time he will be in. Patient was understanding and calm, I offered water and snacks to the patient and her spouse at the bedside.
[2024-02-09 16:51] LABS: COVID19 -Nasal RAPID Negative (Negative)
[2024-02-09 16:52] LABS: Thyroid Stimulating Hormone 0.568 uIU/mL (0.47-4.68)
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
--- NOTE | 2024-02-09 18:02 | ED_ITS ---
HPI - Psych General Chief Complaint: Psychiatric Symptoms Stated Complaint: post assessment Time Seen by Provider: 02/09/24 18:01 Source: patient and family Mode of arrival: Ambulatory History of Present Illness HPI Narrative: 24-year-old walked over from the OBGYN office for evaluation for severe depression with concern for active psychosis. Patient herself states that she is depressed but has difficulty give me any additional history she was quite tearful and has difficulty getting through questions. Reports from as well as the OBGYN are patient has had increasing depression with suicidal ideation, paranoia and possibly hallucinations. Patient states she is very depressed denies any homicidal ideation, does describe suicidal ideation. Related Data Previous Rx's Medication Instructions Recorded breast pump #1 ea 10/13/23 ibuprofen 600 mg tablet 600 mg PO Q6H PRN fever or pain 11/30/23 #30 tabs oxycodone 5 mg tablet 5 mg PO Q6H PRN pain #12 tabs 11/30/23 sertraline 50 mg tablet 50 mg PO DAILY #30 tabs 01/19/24 quetiapine 25 mg tablet (Seroquel) 25 mg PO BEDTIME #20 tabs 02/01/24 Allergies Allergy/AdvReac Type Severity Reaction Status Date / Time avocado Allergy Severe Swelling Verified 11/30/23 11:53 of Lip/Tongue/Throat shrimp Allergy Severe Swelling Verified 11/30/23 11:53 of Lip/Tongue/Throat aloe Allergy Intermediate Rash Verified 11/30/23 11:53 cantaloupe Allergy Intermediate Rash Verified 11/30/23 11:53 honeydew Allergy Intermediate Rash Verified 11/30/23 11:53 pecan nut Allergy Intermediate Rash Verified 11/30/23 11:53 Review of Systems Review of Systems ROS Unobtainable: All systems reviewed & are unremarkable except as noted in HPI and below Patient History Medical History depression Allergies Surgical History [place] teeth extracted (~08/19/20) Family History Grandmother Diabetes mellitus Hypertension Grandfather History of heart disease Grandfather Diabetes mellitus Grandmother Cancer Diabetes mellitus Glaucoma Social History marital status: number of children: 0 household members: spouse lives independently: Yes caregiver/support person: No housing: apartment pets and animals: Yes (turtle) education level: college (some college) 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[place] current occupational exposures/hazards: No special catherine needs: No travel history: over 6 months ago seatbelt use: always water heater temp set < 120 deg: Yes working smoke detector in home: Yes fire extinguisher in home: Yes carbon monox detector in home: Yes firearms in home: No do you feel safe at home: Yes Smoking Status: Never smoker second hand exposure: No alcohol intake: never substance use type: does not use during the past year weight has: remained stable well-balanced diet: rarely or never daily servings fruits/ve-1 caffeine: Yes (minimal) Type(s) of exercise: walking Smoking Status: Never smoker Substance Use Type: does not use Exam Narrative Exam Narrative: GENERAL: Alert and oriented x three, thin female in moderate distress. Patient is tearful throughout our evaluation. HEENT: Head normocephalic, atraumatic, EOMI, pupils reactive, face symmetric, moist mucous membranes NECK: Supple, full range of motion CARDIOVASCULAR: Regular rate and rhythm without murmurs, rubs or gallops. RESPIRATORY: Breath sounds equal bilaterally, no wheezes rales or rhonchi. ABDOMEN: Soft, nontender. Normoactive bowel sounds all 4 quadrants. No guarding or rebound, rigidity, no mass : No CVA tenderness EXTREMITIES: Normal range of motion, no clubbing or edema. Neurovascularly intact NEUROLOGICAL: Cranial nerves II through XII grossly intact. Moving all extremities SKIN: Warm, dry, no petechiae, no rashes or lesions. PSYCH: Denies homicidal ideation, does have some suicidal ideation. Patient had difficulty getting through the rest of the exam. Clear speech. Initial Vital Signs Initial Vital Signs: Vital Signs Temperature 98.1 F 02/09/24 15:39 Pulse Rate 91 H 02/09/24 15:39 Respiratory Rate 12 02/09/24 15:39 Blood Pressure 134/77 02/09/24 15:39 Pulse Oximetry 95 02/09/24 15:39 Oxygen Delivery Method Room Air 02/09/24 15:39 Course Orders Ordered: Discontinued Medications Olanzapine (Olanzapine 2.5 Mg Tablet) 2.5 mg PO NOW ONE Stop: 02/09/24 18:06 Last Admin: 02/09/24 18:11 Dose: 2.5 mg Documented By: LINCOLN Potassium Chloride (Potassium Chloride 20 Meq Tab) 40 meq PO NOW ONE Stop: 02/09/24 18:06 Last Admin: 02/09/24 18:11 Dose: 40 meq Documented By: LINCOLN Vital Signs Vital signs: Vital Signs - 8 hr 02/09/24 15:39 02/09/24 18:03 Temperature 98.1 F Pulse Rate 91 H 85 Respiratory Rate 12 12 Blood Pressure 134/77 127/81 Pulse Oximetry 95 99 Oxygen Delivery Method Room Air Room Air MDM - Psych Lab Data 02/09/24 15:52 02/09/24 15:52 Labs: Lab Results 02/09/24 02/09/24 02/09/24 Range/Units 15:44 15:45 15:45 WBC (4.5-11.0) X10^3/uL RBC (4.0-5.2) X10^6/uL Hgb (12.0-16.0) g/dL Hct (36-46) % MCV (80-100) fL MCH (26-34) PG MCHC (30-36) % RDW (11.6-14.8) % Plt Count (150-400) X10^3/uL Neut % (Auto) (50-75) % Lymph % (Auto) (25-40) % [place] % (Auto) (3-14) % Eos % (Auto) (2-4) % Baso % (Auto) (0-2) % Neut # (Auto) (4724-4372) /uL Lymph # (Auto) (1028-4847) /uL [place] # (Auto) (0-900) /uL Eos # (Auto) (0-450) /uL Baso # (Auto) (0-100) /uL Sodium (137-145) mmol/L Potassium (3.4-5.1) mmol/L Chloride (98-107) mmol/L Carbon Dioxide (22-32) mmol/L BUN (7-17) mg/dL Creatinine (0.52-1.04) mg/dL Estimated GFR (>60) mL/min BUN/Creatinine Ratio (6-22) Glucose (70-100) mg/dL Calcium (8.4-10.2) mg/dL Total Bilirubin (0.2-1.3) mg/dL AST (14-36) IU/L ALT (<35) IU/L Alkaline Phosphatase (38-126) U/L Total Protein (6.3-8.2) g/dL Albumin (3.5-5.0) g/dL Globulin (1.7-4.1) g/dL Albumin/Globulin Ratio (1.0-2.8) TSH (0.47-4.68) uIU/mL Free T4 (0.78-2.19) ng/dL Urine Color Yellow Urine Appearance Sl cloudy Urine pH 5.5 Normal (4.5-8.0) Ur Specific [place] >=1.030 H (1.000-1.035) Urine Protein 1+ H (Negative) Urine Glucose (UA) Negative (Negative) g/dL Urine Ketones 1+ H (NEGATIVE) Urine Occult Blood Trace-intact (Negative) Urine Nitrate Negative (Negative) Urine Bilirubin 2+ H (NEGATIVE) Ur Bilirubin Confirm Negative (Negative) Urine Urobilinogen 1.0 (0.2) E.U./dL Ur Leukocyte Esterase Trace H (NEGATIVE) Urine RBC None seen (0-5/HPF) Urine WBC 30-100/hpf H (0-5/HPF) Ur Squamous Epith Cells 10-30 /hpf H (0-5/HPF) Urine Bacteria Few (2-10) H (None) Ur Culture Indicated? Specimen cultured Vol Urine Centrifuged 10ml (spun) Salicylates (<20) mg/dL U Opiates 300ng/mL cut Negative (Negative) Ur Oxycodone Screen Negative (Negative) Urine Methadone Screen Negative (Negative) Acetaminophen (10-30) ug/mL Ur Barbiturates Screen Negative (Negative) U Tricyclic Antidepress Negative (Negative) Ur Phencyclidine Scrn Negative (Negative) Ur Amphetamines Screen Negative (Negative) U Methamphetamines Scrn Negative (Negative) Ur MDMA Scrn (Ecstasy) Negative (Negative) U Benzodiazepines Scrn Negative (Negative) Urine Cocaine Screen Negative (Negative) U Marijuana (THC) Screen Negative (Negative) Urine Specific [place] Normal (Normal) Ethyl Alcohol ( - 10) mg/dL Ur Creatinine Normal (Normal) SARS-CoV-2 (PCR) Negative (Negative) 02/09/24 Range/Units 15:52 WBC 5.7 (4.5-11.0) X10^3/uL RBC 5.08 (4.0-5.2) X10^6/uL Hgb 13.9 (12.0-16.0) g/dL Hct 41.3 (36-46) % MCV 81.4 (80-100) fL MCH 27.3 (26-34) PG MCHC 33.6 (30-36) % RDW 14.0 (11.6-14.8) % Plt Count 323 (150-400) X10^3/uL Neut % (Auto) 64.6 (50-75) % Lymph % (Auto) 22.6 L (25-40) % [place] % (Auto) 10.3 (3-14) % Eos % (Auto) 1.6 L (2-4) % Baso % (Auto) 0.9 (0-2) % Neut # (Auto) 3700 (0548-7810) /uL Lymph # (Auto) 1300 (4243-8294) /uL [place] # (Auto) 600 (0-900) /uL Eos # (Auto) 100 (0-450) /uL Baso # (Auto) 100 (0-100) /uL Sodium 141 (137-145) mmol/L Potassium 3.0 L (3.4-5.1) mmol/L Chloride 107 (98-107) mmol/L Carbon Dioxide 19 L (22-32) mmol/L BUN 10 (7-17) mg/dL Creatinine 0.91 (0.52-1.04) mg/dL Estimated GFR > 60 (>60) mL/min BUN/Creatinine Ratio 11.0 (6-22) Glucose 100 (70-100) mg/dL Calcium 9.6 (8.4-10.2) mg/dL Total Bilirubin 0.6 (0.2-1.3) mg/dL AST 28 (14-36) IU/L ALT 25 (<35) IU/L Alkaline Phosphatase 78 (38-126) U/L Total Protein 7.9 (6.3-8.2) g/dL Albumin 4.6 (3.5-5.0) g/dL Globulin 3.3 (1.7-4.1) g/dL Albumin/Globulin Ratio 1.4 (1.0-2.8) TSH 0.568 D (0.47-4.68) uIU/mL Free T4 1.70 (0.78-2.19) ng/dL Urine Color Urine Appearance Urine pH (4.5-8.0) Ur Specific [place] (1.000-1.035) Urine Protein (Negative) Urine Glucose (UA) (Negative) g/dL Urine Ketones (NEGATIVE) Urine Occult Blood (Negative) Urine Nitrate (Negative) Urine Bilirubin (NEGATIVE) Ur Bilirubin Confirm (Negative) Urine Urobilinogen (0.2) E.U./dL Ur Leukocyte Esterase (NEGATIVE) Urine RBC (0-5/HPF) Urine WBC (0-5/HPF) Ur Squamous Epith Cells (0-5/HPF) Urine Bacteria (None) Ur Culture Indicated? Vol Urine Centrifuged Salicylates < 1.0 (<20) mg/dL U Opiates 300ng/mL cut (Negative) Ur Oxycodone Screen (Negative) Urine Methadone Screen (Negative) Acetaminophen < 10 (10-30) ug/mL Ur Barbiturates Screen (Negative) U Tricyclic Antidepress (Negative) Ur Phencyclidine Scrn (Negative) Ur Amphetamines Screen (Negative) U Methamphetamines Scrn (Negative) Ur MDMA Scrn (Ecstasy) (Negative) U Benzodiazepines Scrn (Negative) Urine Cocaine Screen (Negative) U Marijuana (THC) Screen (Negative) Urine Specific [place] (Normal) Ethyl Alcohol < 10 ( - 10) mg/dL Ur Creatinine (Normal) SARS-CoV-2 (PCR) (Negative) Point of Care Testing Test Results Negative MDM Narrative Medical decision making narrative: 24-year-old who was brought over by OBGYN for concern with depression with active psychosis. Patient was also seen by Dr. Landry with Psychiatry here in the department and was felt patient requires inpatient treatment. Patient has had multiple contacts with emergency departments, office visits and report of law enforcement for erratic behavior and descriptions of paranoia. Labs show white count of 5.7 hemoglobin of 13.9 platelets of 323. Chemistry shows sodium of 141 potassium of 3, chloride of 107 CO2 of 19 BUN 10 creatinine 0.91, glucose of 100 LFTs are negative, TSH is 0.568 with a free T4 1.7. Tylenol, salicylate and ETOH are negative. UDS is negative. COVID swab is negative. Urine preg is negative. UA shows 1+ protein 1+ ketones 2+ bili trace leuks 300 white cells but also 10- 30 squamous epithelials and few bacteria was sent for culture. Potassium was replaced. Patient was medically cleared. Dr. Landry with Psychiatry met with patient here in the department recommends inpatient psychiatric care and was in contact with [facility] where patient was accepted. Patient also received 2.5 mg of Zyprexa the recommendation of Psychiatry. Plan for BLS transport. Discharge Plan Departure Patient Disposition: Xfer Psychiatric Hosp Clinical Impression: Severe depressive episode with psychotic symptoms in period Prescriptions: No Action (DME) breast pump Device See Rx Instructions .Route Qty: 1 0RF Rx Instructions: As directed double electric sertraline 50 mg tablet 50 mg PO DAILY Qty: 30 3RF ibuprofen 600 mg tablet 600 mg PO Q6H PRN (Reason: fever or pain) Qty: 30 2RF oxycodone 5 mg tablet 5 mg PO Q6H PRN (Reason: pain) Qty: 12 0RF quetiapine [Seroquel] 25 mg tablet 25 mg PO BEDTIME Qty: 20 0RF Referrals: ProviderDarwin [Primary Care Provider] -
[2024-02-09 18:03] VITALS: BP 127/81; PULSE 85; RESP 12; O2SAT 99
[2024-02-09] MEDS: POTASSIUM CHLORIDE 20 MEQ TAB 40 MEQ PO (18:11)
[2024-02-09] MEDS: OLANZapine 2.5 MG TABLET PO (18:11)
--- NOTE | 2024-02-09 19:26 | CM.SWNOTE ---
ED DIRECTOR PROFESSIONAL SERVICES Assessment Note: DIRECTOR PROFESSIONAL SERVICES - Audit Lead Assessment DIRECTOR PROFESSIONAL SERVICES/Audit Lead Assessment Time Spent with Patient Start date 02/09/24 Visit Start Time 18:35 End date 02/09/24 Visit End Time 18:50 Total time Care Management spent on 15 minutes patient visit-in minutes Mental Health Screening Include Onset, Duration, Intensity Presenting Problem Patient presented to the ED with the recommendation of her OBGYN due to concerns for depression with psychotic features. Patient reports having paranoia, I am being stalked by my superiors . Patient reports pain in anal, oral and vaginal region secondary to being unconcious [place] Event(s) Patient presented to the ED on 01/27 for similar symptoms but was able to contract for safety and return home with follow up with PCP and OBGYN. Patient Strengths Patient is communicative and supported by spouse, family and [employer]. Current Behavioral Health Provider(s) None reported. Include Facility, Provider, Ph. # Psych. Hx Mental Health and Chemical Patient has been previously Dependency diagnosed with adjustment disorder and depression. Family Hx of Behavioral Abuse None reported. Psychiatric Hospitalizations (date(s)/ None reported. location) Psychosocial information & Support Patient is a 24yo female, Systems resident of [place]. She is 3mo and is . 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 Legal Concerns Legal Matters - Outstanding Issues None reported. Mental Status Orientation (Person/Place/Time) AOx4 Stated Mood okay Affect (Congruent with Mood?) Flat affect Thought Content - Specify/Describe Patient explains paranoia that Obsessions, Delusions, Hallucinations she is being stalked by superiors. Thought Processes (Utxcapz-Mbzlxynb-Vovm Logical, goal oriented Dazistfi-Hzuwhafh-Apzsogbxwi- Zjymttahqjqqim-Hfsfobx-Rofbpgterlkm- Thought Blocking) Speech (Okuffn-Bzhd-Zkoosfp-Rapid-Soft- Soft, normal Loud-Pressured) Motor (Uoqkjw-Preznbffp-Iunk-Other) Normal Insight (Iaep-Iqhe-Jcxu/Limited) Fair/limited Judgement (Ihjc-Erjm-Ajuj/Limited) Fair/limited Impulse Control (Adequate-Impaired) Adequate Memory (Upwmuomjx-Fovfba-Xjjjcs, Intact Impaired-Intact) Concentration (Intact-Impaired) Intact Attention (Intact-Impaired) Intact Behavior (Appropriate-Inappropriate) Appropriate Additional Comment Patient is calm, cooperative and communicative during assessment and ED presentation. Risk Assessment Suicidal Ideation (Plan) Yes Homicidal Ideation (Plan) Yes Comment Patient explains she is having constant SI and HI of burning her house down with family inside. Intervention Intervention DIRECTOR PROFESSIONAL SERVICES meets with patient, patient has already been assessed by Psychiatrist and ED Provider. Patient reports SI and HI, major depression with some insight. ED DIRECTOR PROFESSIONAL SERVICES deployed PHQ-9 and YAQUELIN-7, patient scored 6 for both screeners. DIRECTOR PROFESSIONAL SERVICES and patient discuss next steps. Patient explains she is wanting to receive inpatient behavioral health hospitalization at this time. At this time, it is the opinion of this DIRECTOR PROFESSIONAL SERVICES that patient would benefit from inpatient psychiatric hospitalization for SI/HI and depression with psychosis. DIRECTOR PROFESSIONAL SERVICES informs ED provider, Dr. Guidry and Psychiatrist, Dr. Landry, who indicates agreement. DIRECTOR PROFESSIONAL SERVICES informs RNs Melody. Plan RA Plan Patient to discharge to [facility] for inpatient treatment via BLS transfer. JEFFREY Palmer
--- NOTE | 2024-02-09 19:27 | CM.SWNOTE ---
ED MANAGER SQL Note: ED MANAGER SQL initiated bed search for inpatient BH treatment. ED MANAGER SQL called [facility] due to patient's active duty status. ED MANAGER SQL faxed all available clinicals for review. ED MANAGER SQL coordinated a MD to MD consult with Psychiatrist, Dr. Landry. [facility] reports patient has been accepted for treatment. Provider: Dr. Andreia Monique MD RN Report: [phone] ([address], patient to enter via ED) ED MANAGER SQL coordinated transport via [facility] BLS at 2045 to arrive at 2300. Plan: Patient to transfer to [facility] for BH inpatient treatment. JEFFREY Palmer
[2024-02-09 20:08] VITALS: BP 113/60; PULSE 68; RESP 18; TEMP 36.8; O2SAT 97
[2024-02-09 20:23] VITALS: BP 116/68; PULSE 68; RESP 16; O2SAT 98
== END 2024-02-09 20:38 ==
PROVIDERS: Emergency Medicine; Emergency Provider Emergency Medicine
DX: O99.345 Other mental disorders complicating the puerperium (principal); F32.3 Major depressive disorder, single episode, severe with psychotic features
CPT/HCPCS: 36415; 80053; 80305; 80320; 80329; 81001; 81025; 84439; 84443; 85025; 87086; 87635; 99284; G0480

== ENCOUNTER 2024-02-18 07:06 | Emergency (ER) | payer OTHER, SELFPAY ==
[2024-02-18] VITALS (7 sets, daily range): BP systolic 125–130; BP diastolic 71–88; PULSE 72–91; RESP 20; TEMP 37–37.1; O2SAT 97–100; BMI 19.8
--- NOTE | 2024-02-18 07:30 | ED.GENADULT ---
HPI - General Adult General Chief complaint: Neuro Symptoms/Deficit Stated complaint: light sensitivity, shaking, memory issues Time Seen by Provider: 02/18/24 07:23 Source: patient Mode of arrival: Ambulatory Limitations: no limitations History of Present Illness HPI narrative: Patient is a 24-year-old female. Is 3 months . Is here in the emergency department about a week ago for a diagnosis of suicidal ideation and paranoia. She was subsequently sent to the [facility]. She states while she was at the facility she had a seizure. She was subsequently discharged from the facility. She comes emergency department today because she has had continued symptoms of light sensitivity, shaking and what she describes as memory issues. She states that they have been going on for the past week but potentially worsened last evening. She was not . Denies chest pain, shortness of breath. She also states that she has a history of migraines. Related Data Previous Rx's Medication Instructions Recorded breast pump #1 ea 10/13/23 ibuprofen 600 mg tablet 600 mg PO Q6H PRN fever or pain 11/30/23 #30 tabs oxycodone 5 mg tablet 5 mg PO Q6H PRN pain #12 tabs 11/30/23 sertraline 50 mg tablet 50 mg PO DAILY #30 tabs 01/19/24 quetiapine 25 mg tablet (Seroquel) 25 mg PO BEDTIME #20 tabs 02/01/24 Allergies Allergy/AdvReac Type Severity Reaction Status Date / Time avocado Allergy Severe Swelling Verified 11/30/23 11:53 of Lip/Tongue/Throat shrimp Allergy Severe Swelling Verified 11/30/23 11:53 of Lip/Tongue/Throat aloe Allergy Intermediate Rash Verified 11/30/23 11:53 cantaloupe Allergy Intermediate Rash Verified 11/30/23 11:53 honeydew Allergy Intermediate Rash Verified 11/30/23 11:53 pecan nut Allergy Intermediate Rash Verified 11/30/23 11:53 Review of Systems Review of Systems Narrative: See HPI Patient History Medical History depression Allergies Surgical History [place] teeth extracted (~08/19/20) Family History Grandmother Diabetes mellitus Hypertension Grandfather History of heart disease Grandfather Diabetes mellitus Grandmother Cancer Diabetes mellitus Glaucoma Social History marital status: number of children: 0 household members: spouse lives independently: Yes caregiver/support person: No housing: apartment pets and animals: Yes (turtle) education level: college (some college) 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[employer]) current occupational exposures/hazards: No special catherine needs: No travel history: over 6 months ago seatbelt use: always water heater temp set < 120 deg: Yes working smoke detector in home: Yes fire extinguisher in home: Yes carbon monox detector in home: Yes firearms in home: No do you feel safe at home: Yes Smoking Status: Never smoker second hand exposure: No alcohol intake: never substance use type: does not use during the past year weight has: remained stable well-balanced diet: rarely or never daily servings fruits/ve-1 caffeine: Yes (minimal) Type(s) of exercise: walking Smoking Status: Never smoker Substance Use Type: does not use Exam Initial Vital Signs Initial Vital Signs: Vital Signs Pulse Rate 91 H 02/18/24 07:16 Blood Pressure 128/78 02/18/24 07:16 Pulse Oximetry 98 02/18/24 07:16 Const General: cooperative, comfortable and No ill appearing HENMT Head: normal to inspection and normocephalic Resp Effort & Inspection: normal respiratory effort Auscultation: clear to auscultation bilaterally Cardio Rate: regular rate Rhythm: regular rhythm GI Inspection: normal to inspection Skin General: no rashes or lesions noted Neuro General: patient alert, patient awake, patient oriented x3 and moves all extremities Extrem General: normal to inspection and capillary refill normal Course Orders Ordered: ED Orders 02/18/24 07:41 Complete Blood Count AUTO DIFF Stat Comprehensive Metabolic Panel Stat Covid-19 + FLU A/B + RSV - PCR Stat Lipase Stat 02/18/24 08:39 Urine Microscopic Stat Discontinued Medications Sodium Chloride (Normal Saline 0.9%) 1,000 mls @ 1,000 mls/hr IV BOLUS ONE Stop: 02/18/24 08:29 Last Infusion: 02/18/24 09:08 Dose: Infused Documented By: Admin: 02/18/24 07:52 Dose: 1,000 mls/hr Documented By: LINCOLN Ketorolac Tromethamine (Ketorolac 30 Mg/Ml Vial) 15 mg IV NOW ONE Stop: 02/18/24 07:31 Last Admin: 02/18/24 07:51 Dose: 15 mg Documented By: LINCOLN Lorazepam (Lorazepam 2 Mg/Ml Inj) 0.5 mg IV NOW ONE Stop: 02/18/24 07:37 Last Admin: 02/18/24 07:51 Dose: 0.5 mg Documented By: LINCOLN Vital Signs Vital signs: Vital Signs - 8 hr 02/18/24 07:16 02/18/24 07:16 02/18/24 07:22 Temperature 98.6 F Pulse Rate 91 H 87 Respiratory Rate 20 Blood Pressure 128/78 128/78 Pulse Oximetry 98 98 Oxygen Delivery Method Room Air 02/18/24 07:30 02/18/24 07:32 02/18/24 07:32 Temperature Pulse Rate 81 72 Respiratory Rate Blood Pressure 125/88 Pulse Oximetry 99 97 Oxygen Delivery Method 02/18/24 08:00 02/18/24 08:10 02/18/24 08:10 Temperature Pulse Rate 80 74 Respiratory Rate Blood Pressure 130/72 Pulse Oximetry 100 100 Oxygen Delivery Method Medical Decision Making Medical Records Medical records reviewed: Yes I reviewed the patient's medical records. Lab Data Lab results reviewed: Yes I reviewed the patient's lab results. 02/18/24 07:41 02/18/24 07:41 Labs: Lab Results 02/18/24 Range/Units 07:41 WBC 4.7 (4.5-11.0) X10^3/uL RBC 4.39 (4.0-5.2) X10^6/uL Hgb 11.9 L (12.0-16.0) g/dL Hct 35.8 L (36-46) % MCV 81.6 (80-100) fL MCH 27.2 (26-34) PG MCHC 33.3 (30-36) % RDW 14.3 (11.6-14.8) % Plt Count 390 (150-400) X10^3/uL Neut % (Auto) 57.1 (50-75) % Lymph % (Auto) 31.9 (25-40) % Wheeler % (Auto) 9.3 (3-14) % Eos % (Auto) 1.0 L (2-4) % Baso % (Auto) 0.7 (0-2) % Neut # (Auto) 2700 (3732-6311) /uL Lymph # (Auto) 1500 (3054-9751) /uL Wheeler # (Auto) 400 (0-900) /uL Eos # (Auto) 0 (0-450) /uL Baso # (Auto) 0 (0-100) /uL Sodium 139 (137-145) mmol/L Potassium 3.8 (3.4-5.1) mmol/L Chloride 106 (98-107) mmol/L Carbon Dioxide 25 (22-32) mmol/L BUN 12 (7-17) mg/dL Creatinine 0.72 (0.52-1.04) mg/dL Estimated GFR > 60 (>60) mL/min BUN/Creatinine Ratio 16.7 (6-22) Glucose 102 H (70-100) mg/dL Calcium 9.6 (8.4-10.2) mg/dL Total Bilirubin 0.4 (0.2-1.3) mg/dL AST 32 (14-36) IU/L ALT 42 H (<35) IU/L Alkaline Phosphatase 69 (38-126) U/L Total Protein 7.3 (6.3-8.2) g/dL Albumin 4.2 (3.5-5.0) g/dL Globulin 3.1 (1.7-4.1) g/dL Albumin/Globulin Ratio 1.4 (1.0-2.8) Lipase 74 (23-300) U/L SARS-CoV-2 (PCR) Negative (Negative) Influenza A (RT-PCR) Flu a negative (NEGATIVE) Influenza B (RT-PCR) Flu b negative (NEGATIVE) RSV (PCR) Negative (Negative) Point of Care Testing Glucose POC 93 Urine Dip Bedside Urine Glucose Negative Bedside Urine Bilirubin - Negative Bedside Urine Ketone - Negative Urine Specific [place] 1.015 Bedside Urine Occult Blood ++ Bedside Urine pH 6.0 Bedside Urine Protein - Negative Bedside Urine Urobilinogen - Negative Bedside Urine Nitrite - Negative Bedside Urine Leukocytes - Negative Esterase Point of care testing: Point of Care Testing Glucose POC 93 Urine Dip Bedside Urine Glucose Negative Bedside Urine Bilirubin - Negative Bedside Urine Ketone - Negative Urine Specific [place] 1.015 Bedside Urine Occult Blood ++ Bedside Urine pH 6.0 Bedside Urine Protein - Negative Bedside Urine Urobilinogen - Negative Bedside Urine Nitrite - Negative Bedside Urine Leukocytes - Negative Esterase MDM Narrative Medical decision making narrative: Patient states she feels much better after medications and fluids here in the emergency department. Her labs are unremarkable. She has had no seizure activity since being here in the ER. Afebrile. Will discharge patient home. She has a follow-up with her mental health provider later this afternoon she was encouraged to keep this appointment. She stated that she was not which is why she was given the medications here in the ER. Discharge Plan Departure Patient Disposition: Home Clinical Impression: Headache Instructions: DI for Headache Activity Restrictions/Additional Instructions: Recommend that you continue to take all of your medications as directed and keep your scheduled appointment with your mental health provider later this afternoon. Return to the emergency department for new symptoms. Prescriptions: No Action (DME) breast pump Device See Rx Instructions .Route Qty: 1 0RF Rx Instructions: As directed double electric sertraline 50 mg tablet 50 mg PO DAILY Qty: 30 3RF ibuprofen 600 mg tablet 600 mg PO Q6H PRN (Reason: fever or pain) Qty: 30 2RF oxycodone 5 mg tablet 5 mg PO Q6H PRN (Reason: pain) Qty: 12 0RF quetiapine [Seroquel] 25 mg tablet 25 mg PO BEDTIME Qty: 20 0RF Referrals: ProviderDarwin [Primary Care Provider] - Stand Alone Forms: Patient Portal/API, Work Release Note
[2024-02-18 07:51] LABS: Add Manual Diff / Slide Review NO; Basophils Absolute Auto 0 /uL (0-100); Basophils Percent Auto 0.7 % (0-2); Eosinophils Absolute Auto 0 /uL (0-450); Hematocrit 35.8 % (36-46); Hemoglobin 11.9 g/dL (12.0-16.0); Lymphocytes Absolute Auto 1500 /uL (1100-4500); Lymphocytes Percent Auto 31.9 % (25-40); Mean Corpuscular HGB Conc 33.3 % (30-36); Mean Corpuscular Hemoglobin 27.2 PG (26-34); Mean Corpuscular Volume 81.6 fL (80-100); Monocytes Absolute Auto 400 /uL (0-900); Monocytes Percent Auto 9.3 % (3-14); Neutrophils Absolute Auto 2700 /uL (1500-7000); Neutrophils Percent Auto 57.1 % (50-75); Platelet Count 390 X10^3/uL (150-400); Red Blood Cell Count 4.39 X10^6/uL (4.0-5.2); Red Cell Distribution Width 14.3 % (11.6-14.8); White Blood Cell Count 4.7 X10^3/uL (4.5-11.0)
[2024-02-18] MEDS: LORazepam 2 MG/ML INJ 0.5 MG IV (07:51)
[2024-02-18] MEDS: KETOROLAC 30 MG/ML VIAL 15 MG IV (07:51)
[2024-02-18] MEDS: SODIUM CHLORIDE 0.9% 1,000 ML 1000 ML IV (07:52)
[2024-02-18 08:09] LABS: Alanine Aminotransferase 42 IU/L (<35); Albumin 4.2 g/dL (3.5-5.0); Albumin Globulin Ratio 1.4 (1.0-2.8); Alkaline Phosphatase 69 U/L (38-126); Aspartate Aminotransferase 32 IU/L (14-36); BUN Creatinine Ratio 16.7 (6-22); Bilirubin Total 0.4 mg/dL (0.2-1.3); Blood Urea Nitrogen 12 mg/dL (7-17); Calcium 9.6 mg/dL (8.4-10.2); Carbon Dioxide 25 mmol/L (22-32); Chloride 106 mmol/L (98-107); Estimated Glomerular Filt Rate > 60 mL/min (>60); Globulin 3.1 g/dL (1.7-4.1); Glucose 102 mg/dL (70-100); HEMOLYSIS < 15 (0-50); Lipase 74 U/L (23-300); Potassium 3.8 mmol/L (3.4-5.1); Sodium 139 mmol/L (137-145); Total Protein 7.3 g/dL (6.3-8.2)
--- NOTE | 2024-02-18 08:15 | PC.NURSE ---
Addendum entered by Lana Jane R.N. 02/18/24 08:17: Dr Herman notified. Original Note: Pt states that she is having an episode. Able to answer questions appropriately and responsive. Pupils equal, round and reactive. Skin pink warm and dry. A&Ox4. VS WNL
[2024-02-18 08:24] LABS: Influenza A - CEPHEID Flu A NEGATIVE (NEGATIVE); Influenza B - CEPHEID Flu B NEGATIVE (NEGATIVE); Respiratory Syncytial Virus Negative (Negative)
[2024-02-18 08:36] LABS: COVID-19 CEPHEID 4-PLEX PCR Negative (Negative)
[2024-02-18 09:17] LABS: Bacteria Urine None Seen; RBC Urine 0-1/HPF (0-5/HPF); Urine Volume 10mL (spun); WBC Urine 1-5/HPF (0-5/HPF)
[2024-02-18 09:18] LABS: Culture Indicated Urine Cult Not Indicated; Squamous Epithelial Cell Urine 1-5 /HPF (0-5/HPF)
== END 2024-02-18 09:28 | disposition home or self-care (01) ==
PROVIDERS: Emergency Provider Emergency Medicine
DX: R51.9 Headache, unspecified (principal); Z11.52 Encounter for screening for COVID-19
CPT/HCPCS: 0241U; 36415; 80053; 81003; 81015; 82962; 83690; 85025; 96361; 96374; 96375; 99284; J1885; J2060

== ENCOUNTER 2024-05-20 13:54 | Emergency (ER) | payer OTHER, SELFPAY ==
[2024-05-20 14:04] VITALS: BP 98/61; PULSE 81; RESP 16; TEMP 36.6; O2SAT 97; BMI 22.2
--- NOTE | 2024-05-20 14:47 | ED_ITS ---
HPI - Abdominal Pain <Sveta Narvaez PA-C - Last Filed: 05/20/24 17:15> General Chief Complaint: Abdominal Pain Stated Complaint: L Thigh/Abd Pain Time Seen by Provider: 05/20/24 14:45 Source: patient Mode of arrival: Ambulatory History of Present Illness HPI narrative: Ms. Lake is a pleasant 24-year-old female with a past medical history of psychosis, currently 6 months who presents to the emergency department for mid abdominal pain x5 days and left thigh pain times a few weeks. Patient is 6 months vaginal delivery. Reports that a few days ago she noticed pain and a lump in the center of her abdomen above her belly button. States that she feels nauseated after eating and worsening of pain. No vomiting, dysuria, fevers, chills, constipation. She has numerous food allergies. She also reports having a fall onto her left thigh a few weeks ago with subsequent left-sided thigh pain. Denies any bruising or swelling. Denies back pain knee pain, lower extremity pain. Related Data Home Medications Medication Instructions Recorded Confirmed aripiprazole 5 mg tablet (Abilify) 5 mg PO BEDTIME 02/18/24 02/18/24 Previous Rx's Medication Instructions Recorded breast pump #1 ea 10/13/23 ibuprofen 600 mg tablet 600 mg PO Q6H PRN fever or pain 11/30/23 #30 tabs sertraline 50 mg tablet 50 mg PO DAILY #30 tabs 01/19/24 quetiapine 25 mg tablet (Seroquel) 25 mg PO BEDTIME #20 tabs 02/01/24 norethindrone 1 mg-ethinyl 1 tab PO DAILY #28 tabs 02/21/24 estradiol 10 mcg (24)-iron 10 mcg(2) tablet (Lo Loestrin Fe) ondansetron 4 mg disintegrating 4 mg PO Q8H PRN nausea and 05/20/24 tablet vomiting #12 tabs Allergies Allergy/AdvReac Type Severity Reaction Status Date / Time avocado Allergy Severe Swelling Verified 11/30/23 11:53 of Lip/Tongue/Throat shrimp Allergy Severe Swelling Verified 11/30/23 11:53 of Lip/Tongue/Throat aloe Allergy Intermediate Rash Verified 11/30/23 11:53 cantaloupe Allergy Intermediate Rash Verified 11/30/23 11:53 honeydew Allergy Intermediate Rash Verified 11/30/23 11:53 pecan nut Allergy Intermediate Rash Verified 11/30/23 11:53 Review of Systems <Sveta Narvaez PA-C - Last Filed: 05/20/24 17:15> Review of Systems ROS Unobtainable: All systems reviewed & are unremarkable except as noted in HPI and below Patient History <Sveta Narvaez PA-C - Last Filed: 05/20/24 17:15> Medical History psychosis depression Allergies Surgical History [place] teeth extracted (~08/19/20) Family History Grandmother Diabetes mellitus Hypertension Grandfather History of heart disease Grandfather Diabetes mellitus Grandmother Cancer Diabetes mellitus Glaucoma Social History marital status: number of children: 0 household members: spouse lives independently: Yes caregiver/support person: No housing: apartment pets and animals: Yes (turtle) education level: college (some college) 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[employer]) current occupational exposures/hazards: No special catherine needs: No travel history: over 6 months ago seatbelt use: always water heater temp set < 120 deg: Yes working smoke detector in home: Yes fire extinguisher in home: Yes carbon monox detector in home: Yes firearms in home: No do you feel safe at home: Yes Smoking Status: Never smoker second hand exposure: No alcohol intake: never substance use type: does not use during the past year weight has: remained stable well-balanced diet: rarely or never daily servings fruits/ve-1 caffeine: Yes (minimal) Type(s) of exercise: walking Smoking Status: Never smoker Exam <Sveta Narvaez PA-C - Last Filed: 05/20/24 17:15> Narrative Exam Narrative: GENERAL: 24 year old patient appears stated age. Well-developed patient, in no acute distress. HEAD: Atraumatic. Normocephalic. NECK: Trachea midline. Cervical ROM intact. CARDIOVASCULAR: Regular rate and rhythm. RESPIRATORY: ?Nonlabored respirations. ?Speaking in clear, full sentences. ?Clear to auscultation. Breath sounds equal bilaterally. No wheezes, rales, or rhonchi. ? GASTROINTESTINAL: Fullness just above umbilicus that is soft and reducible concerning for umbilical hernia. Mild subjective tenderness. Abdomen soft, normal bowel sounds, no right upper quadrant, right lower quadrant, left upper quadrant or left lower quadrant pain. EXTREMITIES: No edema or joint tenderness. Subjective pain on left lateral thigh. No tenderness to palpation of bilateral knees. BACK: Nontender without deformity or crepitance. No flank tenderness. NEURO: AOx3. ?Clear speech. ?Moves all 4 extremities appropriately. SKIN: No rash or erythema of visible areas Initial Vital Signs Initial Vital Signs: Vital Signs Temperature 97.8 F 05/20/24 14:04 Pulse Rate 81 05/20/24 14:04 Respiratory Rate 16 05/20/24 14:04 Blood Pressure 98/61 05/20/24 14:04 Pulse Oximetry 97 05/20/24 14:04 Oxygen Delivery Method Room Air 05/20/24 14:04 <Neville aCndelario MD - Last Filed: 05/20/24 20:46> Initial Vital Signs Initial Vital Signs: Vital Signs Temperature 97.8 F 05/20/24 14:04 Pulse Rate 81 05/20/24 14:04 Respiratory Rate 16 05/20/24 14:04 Blood Pressure 98/61 05/20/24 14:04 Pulse Oximetry 97 05/20/24 14:04 Oxygen Delivery Method Room Air 05/20/24 14:04 Course <Sveta Narvaez PA-C - Last Filed: 05/20/24 17:15> Orders Ordered: ED Orders 05/20/24 15:04 CT abdomen pelvis w con Stat 05/20/24 15:24 Complete Blood Count AUTO DIFF Stat Comprehensive Metabolic Panel Stat Lactate (Lactic Acid) Stat Lipase Stat Discontinued Medications Acetaminophen (Acetaminophen 325 Mg Tablet) 975 mg PO NOW ONE Stop: 05/20/24 15:04 Last Admin: 05/20/24 15:21 Dose: 975 mg Documented By: KANDI Ibuprofen (Ibuprofen 400 Mg Tablet) 400 mg PO NOW ONE Stop: 05/20/24 15:04 Last Admin: 05/20/24 15:21 Dose: 400 mg Documented By: KANDI Ondansetron HCl (Ondansetron 4 Mg/2 Ml Inj) 4 mg IV NOW ONE Stop: 05/20/24 15:04 Last Admin: 05/20/24 15:21 Dose: 4 mg Documented By: KANDI Vital Signs Vital signs: Vital Signs - 8 hr 05/20/24 14:04 05/20/24 17:27 Temperature 97.8 F Pulse Rate 81 73 Respiratory Rate 16 16 Blood Pressure 98/61 98/59 L Pulse Oximetry 97 98 Oxygen Delivery Method Room Air Room Air <Neville Candelario MD - Last Filed: 05/20/24 20:46> Orders Ordered: ED Orders 05/20/24 15:04 CT abdomen pelvis w con Stat 05/20/24 15:24 Complete Blood Count AUTO DIFF Stat Comprehensive Metabolic Panel Stat Lactate (Lactic Acid) Stat Lipase Stat Discontinued Medications Acetaminophen (Acetaminophen 325 Mg Tablet) 975 mg PO NOW ONE Stop: 05/20/24 15:04 Last Admin: 05/20/24 15:21 Dose: 975 mg Documented By: KANDI Ibuprofen (Ibuprofen 400 Mg Tablet) 400 mg PO NOW ONE Stop: 05/20/24 15:04 Last Admin: 05/20/24 15:21 Dose: 400 mg Documented By: KANDI Ondansetron HCl (Ondansetron 4 Mg/2 Ml Inj) 4 mg IV NOW ONE Stop: 05/20/24 15:04 Last Admin: 05/20/24 15:21 Dose: 4 mg Documented By: KANDI Vital Signs Vital signs: Vital Signs - 8 hr 05/20/24 14:04 05/20/24 17:27 Temperature 97.8 F Pulse Rate 81 73 Respiratory Rate 16 16 Blood Pressure 98/61 98/59 L Pulse Oximetry 97 98 Oxygen Delivery Method Room Air Room Air MDM - Abdominal Pain <Sveta Narvaez PA-C - Last Filed: 05/20/24 17:15> Medical Records Attestation: I reviewed the patient's medical records. Lab Data 05/20/24 15:24 05/20/24 15:24 Labs: Lab Results 05/20/24 Range/Units 15:24 WBC 6.2 (4.5-11.0) X10^3/uL RBC 4.36 (4.0-5.2) X10^6/uL Hgb 12.1 (12.0-16.0) g/dL Hct 36.3 (36-46) % MCV 83.3 (80-100) fL MCH 27.8 (26-34) PG MCHC 33.4 (30-36) % RDW 14.0 (11.6-14.8) % Plt Count 357 (150-400) X10^3/uL Neut % (Auto) 62.6 (50-75) % Lymph % (Auto) 27.5 (25-40) % Morris % (Auto) 7.6 (3-14) % Eos % (Auto) 1.6 L (2-4) % Baso % (Auto) 0.7 (0-2) % Neut # (Auto) 3900 (7367-0530) /uL Lymph # (Auto) 1700 (3925-3631) /uL Morris # (Auto) 500 (0-900) /uL Eos # (Auto) 100 (0-450) /uL Baso # (Auto) 0 (0-100) /uL Sodium 138 (137-145) mmol/L Potassium 4.1 (3.4-5.1) mmol/L Chloride 106 (98-107) mmol/L Carbon Dioxide 26 (22-32) mmol/L BUN 13 (7-17) mg/dL Creatinine 0.73 (0.52-1.04) mg/dL Estimated GFR > 60 (>60) mL/min BUN/Creatinine Ratio 17.8 (6-22) Glucose 112 H (70-100) mg/dL Lactate 1.4 (0.7-2.1) mmol/L Calcium 9.1 (8.4-10.2) mg/dL Total Bilirubin 0.3 (0.2-1.3) mg/dL AST 24 (14-36) IU/L ALT 20 (<35) IU/L Alkaline Phosphatase 65 (38-126) U/L Total Protein 7.2 (6.3-8.2) g/dL Albumin 4.1 (3.5-5.0) g/dL Globulin 3.1 (1.7-4.1) g/dL Albumin/Globulin Ratio 1.3 (1.0-2.8) Lipase 74 (23-300) U/L Point of care testing: Point of Care Testing Test Results Negative Urine Dip Bedside Urine Glucose Negative Bedside Urine Bilirubin - Negative Bedside Urine Ketone - Negative Urine Specific [place] 1.025 Bedside Urine Occult Blood - Negative Bedside Urine pH 6.0 Bedside Urine Protein - Negative Bedside Urine Urobilinogen - Negative Bedside Urine Nitrite - Negative Bedside Urine Leukocytes - Negative Esterase Imaging Data CT scan - abdomen/pelvis: Radiologist's Impression: PROCEDURE: CT ABDOMEN PELVIS W CON INDICATIONS: Mid abdominal pain concern for hernia TECHNIQUE: After the administration of intravenous contrast, axial sections acquired from the lung bases to the pubic symphysis. Coronal and sagittal reformats were performed. For radiation dose reduction, the following was used: automated exposure control, adjustment of mA and/or kV according to patient size. COMPARISON: None. FINDINGS: Image quality: Diagnostic. Lower Chest: No significant findings. ABDOMEN: Liver: No solid mass. Gallbladder: No radiopaque gallstones or wall thickening. Biliary ducts: No biliary dilation. Pancreas: No ductal dilation. Spleen: Size is within normal limits. Adrenal Glands: No adrenal nodules. Kidneys and Ureters: No hydronephrosis. No solid mass. No complex renal cystic lesion which requires follow up. Stomach and Bowel: Normal colonic caliber, without significant wall thickening. A normal appendix is noted. No dilated loops of small bowel are seen. Peritoneum: No abnormal intraperitoneal fluid. No free air. Ventral Wall: In this patient with this given history, scrutiny is given to abdominal wall hernias. There is a mild fat containing hernias seen just superior to the umbilicus. No herniated bowel is seen. Abdominal Nodes: No retroperitoneal or mesenteric adenopathy by size criteria. Vessels: Aorta and inferior vena cava are normal in size. PELVIS: Pelvic Organs: Cystic changes can be seen of the adnexal regions, which are regarded to be within physiologic limits. Bladder: No bladder wall thickening, accounting for underdistention. Pelvic Nodes: No enlarged lymph nodes. Miscellaneous: No inguinal hernias are seen. Bones: No aggressive osseous abnormality. IMPRESSION: Mild fat containing hernias seen just superior to the umbilicus. No bowel containing hernia can be seen. Additional findings: Normal appendix MDM Narrative Medical decision making narrative: 24-year-old female with a past medical history of psychosis, currently 6 months who presents to the emergency department for mid abdominal pain x5 days and left thigh pain times a few weeks. Differential diagnosis includes but is not limited to diastasis recti, umbilical hernia, hiatal hernia, electrolyte abnormality, abscess, etc. On exam patient is in no acute distress, nontoxic appearing, vital signs within normal limits. She does have subjective umbilical pain and fullness in this area that is soft and reducible concerning for hernia. Suspect diastasis recti after recent . She also has subjective left lateral thigh pain after a fall with no acute bony tenderness or decreased range of motion -exam consistent with possible iliotibial band syndrome. I had an extensive discussion with the patient about risks of CT scan. We will proceed with a CT abdomen and pelvis with IV contrast to further evaluate abdominal mass and check baseline labs. We will treat pain with Tylenol ibuprofen nausea with Zofran. Abdomen/pelvis CT reveals mild fat containing hernia seen just superior to the umbilicus. No bowel containing hernia can be seen. Labs reassuring with normal lactic. WBC count normal 6.2, hemoglobin 12.1 hematocrit 36.3. Sodium 138 potassium 4.1 chloride 106. Glucose 112. Normal renal function. Lipase normal 74. Point of care urine negative, hCG negative. Abdomen continues to be soft with reducible hernia on repeat examinations. Pain improved. Advised patient follow up with General surgery for further evaluation of that containing abdominal hernia. Recommended rice therapy and ibuprofen/Tylenol if needed for left thigh pain. Patient has physical therapy scheduled for left thigh pain. Also prescribed Zofran if needed for nausea. We discussed signs and symptoms to return to the ER for in regards to her hernia. Both her and her mother verbalized understanding of all information are agreeable to the plan. She is stable for discharge home. <Neville Candelario MD - Last Filed: 05/20/24 20:46> Lab Data Labs: Lab Results 05/20/24 Range/Units 15:24 WBC 6.2 (4.5-11.0) X10^3/uL RBC 4.36 (4.0-5.2) X10^6/uL Hgb 12.1 (12.0-16.0) g/dL Hct 36.3 (36-46) % MCV 83.3 (80-100) fL MCH 27.8 (26-34) PG MCHC 33.4 (30-36) % RDW 14.0 (11.6-14.8) % Plt Count 357 (150-400) X10^3/uL Neut % (Auto) 62.6 (50-75) % Lymph % (Auto) 27.5 (25-40) % Morris % (Auto) 7.6 (3-14) % Eos % (Auto) 1.6 L (2-4) % Baso % (Auto) 0.7 (0-2) % Neut # (Auto) 3900 (1370-7891) /uL Lymph # (Auto) 1700 (7585-5922) /uL Morris # (Auto) 500 (0-900) /uL Eos # (Auto) 100 (0-450) /uL Baso # (Auto) 0 (0-100) /uL Sodium 138 (137-145) mmol/L Potassium 4.1 (3.4-5.1) mmol/L Chloride 106 (98-107) mmol/L Carbon Dioxide 26 (22-32) mmol/L BUN 13 (7-17) mg/dL Creatinine 0.73 (0.52-1.04) mg/dL Estimated GFR > 60 (>60) mL/min BUN/Creatinine Ratio 17.8 (6-22) Glucose 112 H (70-100) mg/dL Lactate 1.4 (0.7-2.1) mmol/L Calcium 9.1 (8.4-10.2) mg/dL Total Bilirubin 0.3 (0.2-1.3) mg/dL AST 24 (14-36) IU/L ALT 20 (<35) IU/L Alkaline Phosphatase 65 (38-126) U/L Total Protein 7.2 (6.3-8.2) g/dL Albumin 4.1 (3.5-5.0) g/dL Globulin 3.1 (1.7-4.1) g/dL Albumin/Globulin Ratio 1.3 (1.0-2.8) Lipase 74 (23-300) U/L Point of care testing: Point of Care Testing Test Results Negative Urine Dip Bedside Urine Glucose Negative Bedside Urine Bilirubin - Negative Bedside Urine Ketone - Negative Urine Specific [place] 1.025 Bedside Urine Occult Blood - Negative Bedside Urine pH 6.0 Bedside Urine Protein - Negative Bedside Urine Urobilinogen - Negative Bedside Urine Nitrite - Negative Bedside Urine Leukocytes - Negative Esterase Discharge Plan Departure Patient Disposition: Home Clinical Impression: Nausea, Pain in left thigh Hernia, umbilical Qualifiers: Obstruction and gangrene presence: without obstruction or gangrene Qualified Code(s): K42.9 - Umbilical hernia without obstruction or gangrene Instructions: DI for Ventral Hernia Activity Restrictions/Additional Instructions: Today we completed an evaluation for mid abdominal pain. Your physical exam and your abdominal CT scan reveal a hernia just above the belly button. There is only fat and this hernia and no bowel. For outpatient hernia repair, please follow up with general surgeon. You may call [facility] at [phone] to schedule an appointment. Your PCP may also need to give you a referral to General surgery. I prescribed you nausea medicine if needed. Please take Ibuprofen (Motrin/Advil) or Acetaminophen (Tylenol) for pain. These are available over the counter. You may take Ibuprofen 600 mg every 8 hours with food for pain. You may also take Acetaminophen 650 mg every 4-6 hours for pain. Do not exceed 3000 mg of Tylenol a day as this can cause liver damage. Do not drink alcohol with either of these medications. Please use RICE therapy for your pain in addition to ibuprofen/acetaminophen. Rest the painful area. Ice the area of pain/swelling for at least 15 minutes, 4x a day. Compress the area of swelling using a brace, wrap, or splint if applied. Elevate the painful or swollen extremity by supporting it above the level of the heart with pillows when sitting or laying. Return to the ER if you develop severe worsening pain of the hernia, increase bulging/redness/color change of the hernia, any other concerns. Please follow up with your primary care doctor within the next 2-3 days for ER follow-up. (If you do not have a PCP you can call [phone]. ?to schedule an appointment with an [facility] Primary Care Provider) IF YOU DEVELOP ANY NEW OR WORSENING SYMPTOMS, RETURN TO THE ER! Please read the attached instructions, they highlight more specific treatments and interventions for you at home. Thank you for letting me participate in your care, Sveta Narvaez PA-C Prescriptions: New ondansetron 4 mg tablet,disintegrating 4 mg PO Q8H PRN (Reason: nausea and vomiting) Qty: 12 0RF No Action aripiprazole [Abilify] 5 mg tablet 5 mg PO BEDTIME Lo Loestrin Fe 1 mg-10 mcg (24)/10 mcg (2) tablet 1 tab PO DAILY Qty: 28 0RF (DME) breast pump Device See Rx Instructions .Route Qty: 1 0RF Rx Instructions: As directed double electric sertraline 50 mg tablet 50 mg PO DAILY Qty: 30 3RF ibuprofen 600 mg tablet 600 mg PO Q6H PRN (Reason: fever or pain) Qty: 30 2RF quetiapine [Seroquel] 25 mg tablet 25 mg PO BEDTIME Qty: 20 0RF Referrals: [facility] [Primary Care Provider] - Stand Alone Forms: Patient Portal/API/Survey ED Sign-out <Neville Candelario MD - Last Filed: 05/20/24 20:46> Cosign ED Attending Cosignature Attestation: I was immediately available in the department for consultation. This documentation has been reviewed and I agree with assessment and plan. Supervised by Neville Candelario MD
--- NOTE | 2024-05-20 15:04 | DI.CT.S_ITS ---
PROCEDURE: CT ABDOMEN PELVIS W CON INDICATIONS: Mid abdominal pain concern for hernia TECHNIQUE: After the administration of intravenous contrast, axial sections acquired from the lung bases to the pubic symphysis. Coronal and sagittal reformats were performed. For radiation dose reduction, the following was used: automated exposure control, adjustment of mA and/or kV according to patient size. COMPARISON: None. FINDINGS: Image quality: Diagnostic. Lower Chest: No significant findings. ABDOMEN: Liver: No solid mass. Gallbladder: No radiopaque gallstones or wall thickening. Biliary ducts: No biliary dilation. Pancreas: No ductal dilation. Spleen: Size is within normal limits. Adrenal Glands: No adrenal nodules. Kidneys and Ureters: No hydronephrosis. No solid mass. No complex renal cystic lesion which requires follow up. Stomach and Bowel: Normal colonic caliber, without significant wall thickening. A normal appendix is noted. No dilated loops of small bowel are seen. Peritoneum: No abnormal intraperitoneal fluid. No free air. Ventral Wall: In this patient with this given history, scrutiny is given to abdominal wall hernias. There is a mild fat containing hernias seen just superior to the umbilicus. No herniated bowel is seen. Abdominal Nodes: No retroperitoneal or mesenteric adenopathy by size criteria. Vessels: Aorta and inferior vena cava are normal in size. PELVIS: Pelvic Organs: Cystic changes can be seen of the adnexal regions, which are regarded to be within physiologic limits. Bladder: No bladder wall thickening, accounting for underdistention. Pelvic Nodes: No enlarged lymph nodes. Miscellaneous: No inguinal hernias are seen. Bones: No aggressive osseous abnormality. IMPRESSION: Mild fat containing hernias seen just superior to the umbilicus. No bowel containing hernia can be seen. Additional findings: Normal appendix Dictated by: Alessandro Schaffer M.D. on 05/20/2024 at 15:30 Approved by: Alessandro Schaffer M.D. on 05/20/2024 at 15:32
[2024-05-20] MEDS: ONDANSETRON 4 MG/2 ML INJ IV (15:21)
[2024-05-20] MEDS: IBUPROFEN 400 MG TABLET PO (15:21)
[2024-05-20] MEDS: ACETAMINOPHEN 325 MG TABLET 975 MG PO (15:21)
[2024-05-20 15:34] LABS: Add Manual Diff / Slide Review NO; Basophils Absolute Auto 0 /uL (0-100); Basophils Percent Auto 0.7 % (0-2); Eosinophils Absolute Auto 100 /uL (0-450); Eosinophils Percent Auto 1.6 % (2-4); Hematocrit 36.3 % (36-46); Hemoglobin 12.1 g/dL (12.0-16.0); Lymphocytes Absolute Auto 1700 /uL (1100-4500); Lymphocytes Percent Auto 27.5 % (25-40); Mean Corpuscular HGB Conc 33.4 % (30-36); Mean Corpuscular Hemoglobin 27.8 PG (26-34); Mean Corpuscular Volume 83.3 fL (80-100); Monocytes Absolute Auto 500 /uL (0-900); Monocytes Percent Auto 7.6 % (3-14); Neutrophils Absolute Auto 3900 /uL (1500-7000); Neutrophils Percent Auto 62.6 % (50-75); Platelet Count 357 X10^3/uL (150-400); Red Blood Cell Count 4.36 X10^6/uL (4.0-5.2); White Blood Cell Count 6.2 X10^3/uL (4.5-11.0)
[2024-05-20 15:47] LABS: Alanine Aminotransferase 20 IU/L (<35); Albumin 4.1 g/dL (3.5-5.0); Albumin Globulin Ratio 1.3 (1.0-2.8); Alkaline Phosphatase 65 U/L (38-126); Aspartate Aminotransferase 24 IU/L (14-36); BUN Creatinine Ratio 17.8 (6-22); Bilirubin Total 0.3 mg/dL (0.2-1.3); Blood Urea Nitrogen 13 mg/dL (7-17); Calcium 9.1 mg/dL (8.4-10.2); Carbon Dioxide 26 mmol/L (22-32); Chloride 106 mmol/L (98-107); Estimated Glomerular Filt Rate > 60 mL/min (>60); Globulin 3.1 g/dL (1.7-4.1); Glucose 112 mg/dL (70-100); HEMOLYSIS < 15 (0-50); Lipase 74 U/L (23-300); Potassium 4.1 mmol/L (3.4-5.1); Sodium 138 mmol/L (137-145); Total Protein 7.2 g/dL (6.3-8.2)
[2024-05-20 15:49] LABS: Lactate (Lactic Acid) 1.4 mmol/L (0.7-2.1)
[2024-05-20 17:27] VITALS: BP 98/59; PULSE 73; RESP 16; O2SAT 98
== END 2024-05-20 17:28 | disposition home or self-care (01) ==
PROVIDERS: Emergency Provider Physician Assistant
DX: K42.9 Umbilical hernia without obstruction or gangrene (principal); M79.652 Pain in left thigh; R11.0 Nausea
CPT/HCPCS: 36415; 74177; 80053; 81003; 81025; 83605; 83690; 85025; 96374; 99284; J2405; Q9967

== ENCOUNTER → 2024-06-28 09:22 | Outpatient (CLI) | payer OTHER, SELFPAY ==
--- NOTE | 2024-06-28 09:23 | DI.ECHO.S_ITS ---
[facility] : : [address] : : [place] : : [id number] : : Phone: [phone] Echocardiogram Report + + :Name: ZULEMA LENTZ Study Date: 06/28/2024 Height: 59 in : [facility] ReadingLocation: Weight: 116 lb : : Gender: Female BSA: 1.5 m2 : :: 2000 Age: 24 yrs BP: 104/68 mmHg: :Reason For Study: ANEMIA, ISCHEMIC HEART DISEASE : :Ordering Physician: ANGELO, : :COMFORT Performed By: Pooja Gerber : :Referring: COMFORT STEPHENS : + + Interpretation Summary 1. Left ventricular contractility is normal. Estimate ejection fraction is greater than 60% with no segmental wall motion abnormalities. No LVH. Normal diastolic function. 2. The right ventricular contractility is normal. 3. All cardiac chambers are of normal size. 4. No significant valvular abnormalities. 5. No obvious intracardiac shunts. 6. No obvious intracardiac masses or thrombi. 7. No hemodynamically significant pericardial effusion. 8. Low right-sided filling pressures. Conclusion: Normal biventricular function with no significant valvular nor structural abnormalities. Procedure: A two-dimensional transthoracic echocardiogram with color flow and Doppler was performed. The study quality was technically adequate. There is no prior echocardiogram noted for this patient. The patient was in sinus rhythm with heart rates between 68-78 bpm during the exam. Left Ventricle: The left ventricle is normal in size and wall thickness. The ejection fraction is estimated to be 60-65%. Diastolic parameters suggest probable normal left ventricular diastolic function and normal filling pressures. Right Ventricle: The right ventricle is normal in size and function. Atria: The left atrial size is normal. Right atrial size is normal. There is no Doppler evidence for an interatrial shunt. Mitral Valve: The mitral valve leaflets appear to open well. There is no mitral annular calcification. There is no mitral valve stenosis. There is no mitral regurgitation. Aortic Valve: The aortic valve is trileaflet. The aortic valve opens well. There is no aortic valve stenosis. No aortic regurgitation is present. Tricuspid Valve: The tricuspid valve leaflets are thin and pliable. The right ventricular systolic pressure is estimated to be at least 21 mmHg based on an estimated right atrial pressure of 3 mm Hg. There is a trace or physiologic amount of tricuspid regurgitation. Pulmonic Valve: The pulmonic valve leaflets are thin and pliable; valve motion is normal. There is a trace or physiologic amount of pulmonic regurgitation. Great Vessels: The aortic root is normal size. The dimensions of the ascending aorta are normal. The IVC is of normal diameter and collapses greater than 50% with a sniff. This suggests a low right atrial pressure of 3 mm Hg. Pericardium/ Pleura There is no pericardial effusion. There is no pleural effusion. MMode/2D Measurements & Calculations LVIDd: 4.1 cm LVOT diam: 2.0 cm LVIDs: 2.6 cm Ao root diam: 2.1 cm FS: 36.7 % asc Aorta Diam: 2.2 cm EPSS: 0.29 cm Ao Arch Diam (Prox Trans): 2.0 cm IVSd: 0.47 cm LVPWd: 0.61 cm LV curry. diameter/BSA (cm/m^2): 2.8 LV sys. diameter/BSA (cm/m^2): 1.8 LA A2 area: 14.0 cm2 RA long axis: 3.5 cm LA A4 area: 11.6 cm2 RA area: 7.6 cm2 LA length (vol): 4.2 cm RA vol: 13.8 ml LA vol: 32.7 ml RA : 9.5 ml/m2 LA vol index: 22.3 ml/m2 IVC diam: 1.3 cm RVD1 (basal): 3.1 cm RVD2 (mid): 2.6 cm TAPSE: 1.9 cm Doppler Measurements & Calculations Ao V2 max: 117.1 cm/sec LVOT Max Aryan: 78.7 cm/sec Ao V2 mean: 83.6 cm/sec LV V1 max P.5 mmHg Ao max P.5 mmHg LV V1 VTI: 16.2 cm Ao mean P.1 mmHg FORTINO(I,D): 1.9 cm2 Ao V2 VTI: 26.4 cm FORTINO(V,D): 2.0 cm2 sev ratio: 0.61 FORTINO indexed to BSA (cm^2/m^2): 1.3 MV E max aryan: 84.5 cm/sec TR max aryan: 209.7 cm/sec MV A max aryan: 49.6 cm/sec TR max P.6 mmHg MV E/A: 1.7 PA V2 max: 96.8 cm/sec Med Peak E' Aryan: 14.8 cm/sec PA V2 mean: 67.3 cm/sec E/E' med: 5.7 PA mean P.1 mmHg Lat Peak E' Aryan: 17.1 cm/sec PA pr(Accel): 8.8 mmHg E/E' lat: 4.9 E/e' average: 5.3 MV dec time: 0.18 sec MVA(VTI): 2.0 cm2 Pulm A Revs Aryan: 20.0 cm/sec MV V2 mean: 56.7 cm/sec Pulm A Revs Dur: 0.10 sec MV mean P.5 mmHg MV V2 VTI: 24.9 cm SV(LVOT): 48.9 ml Reading Physician:
== END ==
PROVIDERS: Referring Provider Chiropractor; Visit Provider Chiropractor
DX: I25.9 Chronic ischemic heart disease, unspecified (principal); D50.9 Iron deficiency anemia, unspecified
CPT/HCPCS: 93306